=== PATIENT | male | born 1935 | race Caucasian/White ===

== ENCOUNTER 2016-11-02 15:28 | Outpatient (CLI) | payer MEDICARE, OTHER ==
--- NOTE | 2016-11-03 07:43 | RAD ---
THREE VIEWS LEFT WRIST: Indication: Left wrist pain after fall six days ago. Comparison: None. FINDINGS: There is a nondisplaced radial styloid process fracture. No additional fracture is grossly evident. IMPRESSION: Nondisplaced radial styloid process. POS: [facility]
== END 2016-11-02 15:29 | disposition home or self-care (01) ==
LOC: NAV RAD 15:28
PROVIDERS: ATTEND Internal Medicine
DX: M25.532 Pain in left wrist (principal)

== ENCOUNTER 2018-08-01 14:30 | Outpatient (CLI) | payer MEDICARE, OTHER ==
--- NOTE | 2018-08-01 16:42 | RAD ---
CHEST 2 VIEWS: Date: 08/01/18 HISTORY: Cough. Bronchitis. FINDINGS: Cardiac silhouette is unremarkable. Pulmonary vasculature engorged with mild bilateral perihilar and bibasilar infiltrates. Mediastinum is midline with aortic calcification. No confluent air space conso lidation, pneumothorax, or pleural fluid are apparent. IMPRESSION: 1. Patchy bibasilar infiltrates are favored to be related to pulmonary vascular congestion. 2. Atherosclerosis. POS: [facility]
== END 2018-08-01 14:31 | disposition home or self-care (01) ==
LOC: NAV RAD 14:30
PROVIDERS: ATTEND Family Medicine
DX: J20.9 Acute bronchitis, unspecified (principal); I70.0 Atherosclerosis of aorta
CPT/HCPCS: 71046

== ENCOUNTER 2019-09-13 18:10 | Inpatient (IN) | payer MEDICARE ==
[2019-09-13] MEDS ORDERED: hydrALAZINE 20 MG/ML VIAL SLOW IVP PRN (20:36)
[2019-09-13] MEDS ORDERED: 1/2 NS w/KCL 20 mEq 1,000 ML IV PRN (20:37)
[2019-09-13] MEDS ORDERED: Labetalol HCl 100 MG/20 ML VIAL SLOW IVP PRN (20:38)
[2019-09-13] MEDS ORDERED: ZONISAMIDE 100 MG PO SCH (21:00)
[2019-09-13] MEDS ORDERED: clonazePAM 0.5 MG TAB PO SCH (21:00)
[2019-09-13] MEDS ORDERED: Sodium Chloride 0.9% (PF) 10 ML VIAL FS PRN (21:07)
[2019-09-14 05:36] LABS: #Basophils 0.1 thou/uL (0.0-0.2); #Eosinphils 0.2 thou/uL (0.0-0.7); #Lymphocytes 1.7 thou/uL (1.20-3.40); #Monocytes 0.6 thou/uL (0.11-0.59); #Neutrophils 6.3 thou/uL (1.40-6.50); %Basophils 0.7 % (0.0-1.0); %Eosinophils 1.9 % (0.0-10.0); %Lymphocytes 19.1 % (21.0-51.0); %Monocytes 7.1 % (0.0-10.0); %Neutrophils 71.2 % (42.0-75.0); Hemoglobin 10.4 g/dL (14.0-18.0); Mean Corpuscular HGB CONC 31.7 g/dL (32.0-36.0); Mean Corpuscular Volume 91.6 fL (78.0-98.0); Mean Platelet Volume 8.3 fL (7.4-10.4); Platelet Count 242 thou/uL (130-400); RBC Distribution Width 13.2 % (11.5-14.5); Red Blood Cell (RBC) Count 3.57 mill/uL (4.70-6.10); White Blood Cell (WBC) Count 8.8 thou/uL (4.8-10.8)
[2019-09-14 05:48] LABS: ALT (SGPT) 37 U/L (8-55); AST (SGOT) 27 U/L (5-34); Albumin 3.1 g/dL (3.4-4.8); Alkaline Phosphatase 97 U/L (40-110); Anion Gap 12 mmol/L (10-20); BUN (Urea Nitrogen) 24 mg/dL (8.4-25.7); Bilirubin, Total 0.4 mg/dL (0.2-1.2); Calc. Creatinine Clearance 72 mL/min (70-130); Calcium 9.1 mg/dL (7.8-10.44); Carbon Dioxide 25 mmol/L (23-31); Chloride 107 mmol/L (98-107); Estimated GFR-MDRD 88; Globulin 2.4 g/dL (2.4-3.5); Glucose 147 mg/dL (83-110); Potassium 3.8 mmol/L (3.5-5.1); Protein, Total 5.5 g/dL (5.8-8.1); Sodium 140 mmol/L (136-145)
[2019-09-14] MEDS ORDERED: Lisinopril 10 MG TAB PO SCH (09:00)
[2019-09-14] MEDS ORDERED: Enoxaparin Sodium 40 MG/0.4 ML SYRINGE SC SCH (09:00)
[2019-09-14] MEDS ORDERED: Pantoprazole 40 MG VIAL IVP SCH (09:00)
[2019-09-14] MEDS ORDERED: FLU VACC TS2019-20(65YR UP)/PF 180 MCG/0.5 ML SYRINGE IM ONE (09:00)
[2019-09-14] MEDS ORDERED: Fluconazole 100 MG TAB PO SCH (09:00)
[2019-09-14] MEDS ORDERED: Acetaminophen 500 MG TAB PER TUBE SCH (15:00)
--- NOTE | 2019-09-14 16:31 | HP ---
HISTORY OF PRESENT ILLNESS: The patient is a very pleasant 84-year-old white male, transferred to [facility] late yesterday evening for physical therapy and occupational therapy. The patient was seen initially at [facility], evaluated and sent home with possible early bowel obstruction. His symptoms did not resolve and he was seen in the emergency room at [facility], and a CAT scan revealed changes consistent with bowel obstruction. He was admitted to the hospital, treated conservatively, but when he did not clear, he was taken to the surgical suite and had a laparoscopic lysis of adhesions. Postoperatively, he did fairly well, but ended up going to the ICU. He developed an ileus and had a poor appetite. Eventually, he had a PEG tube placed and had tube feedings continuous via that. Dr. Tao called me yesterday and said the patient was doing very well and wished him to be transferred to [facility] for physical therapy and occupational therapy. He states he was tolerating his tube feedings very well and needed some therapy. He also stated that Speech had cleared him for honey thickened liquids. PAST MEDICAL HISTORY: Significant for: 1. Hypertension. 2. Hyperlipidemia. 3. Degenerative joint disease. 4. GERD. 5. Erectile dysfunction. 6. Gout. 7. Polycythemia. 8. Depression. 9. Generalized weakness. PAST SURGICAL HISTORY: 1. PE tube. 2. C-spine fusion. 3. Right rotator cuff. 4. Left knee arthroscopy. 5. Right inguinal hernia repair. 6. Robotic right colectomy many years ago. 7. Multiple colonoscopies. 8. Recent robotic lysis of adhesions. MEDICATIONS: Present medications that he was transferred here on include the following, which include: 1. DuoNebs q.i.d. p.r.n. 2. Clonazepam 0.5 mg at bedtime. 3. Lovenox 40 mg subcu daily. 4. Diflucan 100 mg daily. 5. Hydralazine 10 mg slow IV q.4 hours p.r.n. blood pressure greater than 170. 6. Labetalol 20 mg slow IV q.4 hours p.r.n. blood pressure greater than 170. 7. Zestril 10 mg daily. 8. Zonisamide 100 mg b.i.d. 9. Protonix 40 mg IV daily. 10. Potassium chloride with half-normal saline p.r.n. 20 mEq and a 1000 mL p.r.n. potassium less than 3.5. 11. Zoloft 100 mg daily. 12. Normal saline flush. ALLERGIES: REVEALS THE PATIENT IS ALLERGIC TO ASPIRIN AND IBUPROFEN. FAMILY HISTORY: Noncontributory. SOCIAL HISTORY: Reveals the patient lives in [place], [place], with his in a one-story home. He states he remembers me from a long time ago, probably 30 plus years ago. REVIEW OF SYSTEMS: Noncontributory because the patient still is somewhat confused and very sleepy this morning. PHYSICAL EXAMINATION: VITAL SIGNS: Reveal blood pressure 149/65, pulse 70 to 71, respirations 18 to 20, O2 saturation 96% on room air, and T-max 97.1. GENERAL: This is a well-developed, well-nourished, thin white male, in no apparent distress at this time. HEENT: Reveals normocephalic and nontraumatic cranium. Pupils equally round and reactive. Extraocular movements are intact. Nose and throat are slightly dry, but clear. NECK: Supple without masses, nodes, or bruits. CHEST: Clear to auscultation. No rales, no rhonchi, no wheezes are heard. HEART: Reveals a regular rate and rhythm without murmurs, gallops, or rubs. ABDOMEN: Soft, nontender, with multiple robotic incision sites, but none are red or draining. No rebound or guarding is noted. Normal bowel sounds are noted in all 4 quadrants. PEG tube noted in the upper left quadrant. Right inguinal hernia scar is noted in the right groin. : Deferred. EXTREMITIES: Reveal no clubbing, cyanosis, or edema. LABORATORY DATA: This morning, reveal white count is 8800, hemoglobin 10.4, hematocrit 32.7, and platelet count 242,000. Chemistry reveals sodium 140, potassium 3.8, chloride 107, carbon dioxide 25 with a BUN 24, creatinine 0.83, sugar is 147 this morning. The patient's total protein is 5.5, albumin 3.1. His pre-albumin is pending. ASSESSMENT: 1. Generalized weakness. 2. Recent bowel obstruction with PEG tube placement. As he is progressing along his tube feedings and along his feedings, we will eventually discontinue that. 3. Hypertension. 4. Hyperlipidemia. 5. History of polyps. 6. Generalized weakness. 7. Recent small bowel obstruction with robotic lysis of adhesions. 8. Degenerative joint disease. 9. Recent altered mental status, which is improving. PLAN: 1. The patient will start with physical therapy and occupational therapy. 2. The patient will see speech therapy today. 3. We will continue his present medications. 4. We will continue his present tube feedings. 5. If the patient progresses, we will adjust his medications according to his blood pressure and his nutritional status. 6. Hopefully, the patient will eventually be able to be weaned off his PEG tube feedings on to normal feedings. 7. Continue to monitor the patient's labs once or twice a week. Job ID: [id number]
[2019-09-14] MEDS: clonazePAM 0.5 MG TAB PO SCH (20:35)
[2019-09-14] MEDS: ZONISAMIDE 100 MG PO SCH (20:36)
[2019-09-15] MEDS: ZONISAMIDE 100 MG PO SCH ×2 (09:00→20:27)
[2019-09-15] MEDS ORDERED: Pantoprazole 40 MG VIAL IVP SCH (09:00)
[2019-09-15] MEDS: Enoxaparin Sodium 40 MG/0.4 ML SYRINGE SC SCH (09:22)
[2019-09-15] MEDS: Fluconazole 100 MG TAB PO SCH (09:28)
[2019-09-15] MEDS: Lisinopril 10 MG TAB PO SCH (09:29)
[2019-09-15] MEDS: Acetaminophen 500 MG TAB PER TUBE PRN (09:56)
--- NOTE | 2019-09-15 14:27 | PRG ---
DATE OF SERVICE: 09/15/2019 SUBJECTIVE: Mr. Burroughs is a pleasant 84-year-old white male, transferred to [facility] for physical therapy and occupational therapy. He was initially admitted to [facility] and then sent home with early bowel obstruction. Symptoms did not resolve and he returned to the emergency room at [facility], where CAT scan revealed significant changes consistent with bowel obstruction. Admitted to the hospital and treat conservatively, but he did not improve. He was taken to the surgical suite, where Dr. Daniel Tao did a laparoscopic lysis of adhesions. Postoperatively, he has actually done fairly well except for occasional significant outbursts. He is stable, beginning to eat. He was transferred to inpatient rehab at [facility] for physical therapy and occupational therapy. Subjectively, the patient seems to be doing fairly well. He was cleared by Speech Therapy for pureed type foods. We will continue his PEG feedings and his water flushes as indicated. Unfortunately, he has significant problem with depression and most likely, his bipolar because, he will be very calm and then in the split of an instant, he will be very aggressive. We will continue his fluoxetine, but we will start him on Risperdal 0.25 mg b.i.d. Vital signs today reveal blood pressure 156/67, pulse 76 to 78, respirations 20, O2 saturation 97% on room air, T-max 97.7. Laboratory yesterday revealed white count 8000, hemoglobin 10.4, hematocrit 32.7, platelet count 242,000. Chemistries yesterday reveal sodium of 140, potassium 3.8, chloride 107, carbon dioxide 25 with creatinine 0.83. Glucose was 147. BNP was 82. Pre-albumin was 20. PHYSICAL EXAMINATION: GENERAL: This is a well-developed, well-nourished, thin white male, but does not eat much. HEENT: Normocephalic and nontraumatic cranium. Pupils are equally round and reactive. Extraocular movements intact. Nose and throat are somewhat dry, but clear. NECK: Supple without masses, nodes, or bruits. CHEST: Clear to auscultation. No rales, rhonchi, or wheezes are heard. HEART: Reveals a regular rate and rhythm without murmurs, gallops, or rubs. ABDOMEN: Soft, nontender without organomegaly. No rebound or guarding is noted. PEG tube is noted in the left upper quadrant. Right inguinal hernia scar is noted. Robotic surgical incisions are noted from his adhesiolysis. : Deferred. EXTREMITIES: Reveal no clubbing, cyanosis, or edema. LABORATORY DATA: No labs were done today. ASSESSMENT: 1. Generalized weakness. 2. Recent bowel obstruction with PEG tube placement and the patient is progressing towards pureed foods and liquids. 3. Hypertension. 4. Hyperlipidemia. 5. History of generalized weakness with recent small bowel obstruction with robotic lysis of adhesions. 6. Degenerative joint disease. 7. Altered mental status. 8. Depression. 9. Polycythemia. 10. Gout. 11. Erectile dysfunction. 12. Gastroesophageal reflux disease. 13. Depression/bipolar. PLAN: 1. We will start the patient on Risperdal 0.25 mg in the hopes that it will help him increase his appetite and keep him from becoming as manic with his bipolar disease. 2. Continue tube feedings along with oral feedings of pureed and honey thickened liquids. 3. Continue speech therapy. 4. Continue present medications. 5. Continue physical therapy and occupational therapy. 6. Continue to monitor the patient's blood pressure closely. 7. Dr. Adrian Sams is on-call this weekend. Job ID: [id number]
[2019-09-15] MEDS: risperiDONE 0.25 MG TAB PO SCH (20:26)
[2019-09-15] MEDS: Lorazepam 0.5 MG TAB PER TUBE PRN (20:26)
[2019-09-15] MEDS: clonazePAM 0.5 MG TAB PO SCH (20:26)
[2019-09-16 00:42] LABS: Bilirubin Negative (Negative); Blood, Urine Trace (Negative); Clarity Clear (Clear); Glucose, Urine (Dipstick) Negative (Negative); Leukocyte Negative (Negative); Nitrite Negative (Negative); Protein, Urine (Dipstick) Negative (Neg-Trace); Urobilinogen 0.2 mg/dL (Less than 2)
[2019-09-16 00:45] LABS: Bacteria/HPF None Seen HPF (None Seen); Squamous Epithelial 0-3 HPF (0-3); WBC/HPF None Seen HPF (0-3)
[2019-09-16] MEDS: Lorazepam 0.5 MG TAB PER TUBE PRN ×3 (08:43→20:58)
[2019-09-16] MEDS: Enoxaparin Sodium 40 MG/0.4 ML SYRINGE SC SCH (08:43)
[2019-09-16] MEDS: Lisinopril 10 MG TAB PO SCH (08:44)
[2019-09-16] MEDS: risperiDONE 0.25 MG TAB PO SCH ×2 (08:45→20:58)
[2019-09-16] MEDS: Fluconazole 100 MG TAB PO SCH (08:45)
[2019-09-16] MEDS: ZONISAMIDE 100 MG PO SCH ×2 (08:47→20:58)
[2019-09-16] MEDS: Milk Of Magnesia 30 ML UDCUP PER TUBE PRN (20:58)
[2019-09-16] MEDS: Acetaminophen 500 MG TAB PER TUBE PRN (20:58)
[2019-09-16] MEDS: clonazePAM 0.5 MG TAB PO SCH (20:58)
--- NOTE | 2019-09-17 08:05 | PRG ---
DATE OF SERVICE: 09/16/2019 SUBJECTIVE: The patient is awake and alert, lying in his bed, but is requiring sitter because of confusion and occasional agitation at this time. However, he is in no distress. Denies any complaints of abdominal pain, nausea, vomiting, or shortness of breath. OBJECTIVE: VITAL SIGNS: Blood pressure is 127/87, temperature is 98, pulse is 84, respirations are 20, O2 saturation is 98% on room air. LUNGS: Clear. CARDIAC: Shows regular rhythm. ABDOMEN: Soft, nontender. PEG tube is in the left upper quadrant. SKIN AND EXTREMITIES: Show no edema, clubbing, or cyanosis. ASSESSMENT: 1. Recent bowel obstruction with percutaneous endoscopic gastrostomy tube placement, but progressing on diet with pureed foods, liquids. 2. General weakness, improving. 3. Bipolar disorder with depression, treated with Risperdal. No further agitation, but with persistent confusion. 4. Hypertension, controlled to goal. PLAN: 1. Continue Risperdal and monitor for increased lethargy. 2. Continue pureed diet, honey thickened liquids. 3. Continue speech therapy, physical therapy, occupational therapy. 4. Continue to monitor vital signs closely. Job ID: [id number]
[2019-09-17] MEDS: Lisinopril 10 MG TAB PO SCH (08:57)
[2019-09-17] MEDS: risperiDONE 0.25 MG TAB PO SCH ×2 (08:57→20:52)
[2019-09-17] MEDS: Lorazepam 0.5 MG TAB PER TUBE PRN ×3 (08:57→20:53)
[2019-09-17] MEDS: Fluconazole 100 MG TAB PO SCH (08:57)
[2019-09-17] MEDS: ZONISAMIDE 100 MG PO SCH ×2 (08:58→20:53)
[2019-09-17] MEDS: Enoxaparin Sodium 40 MG/0.4 ML SYRINGE SC SCH (09:00)
[2019-09-17] MEDS: Acetaminophen 500 MG TAB PER TUBE PRN ×2 (09:15→20:52)
[2019-09-17] MEDS: clonazePAM 0.5 MG TAB PO SCH (20:52)
[2019-09-18] MEDS: Enoxaparin Sodium 40 MG/0.4 ML SYRINGE SC SCH (10:06)
[2019-09-18] MEDS: Lisinopril 10 MG TAB PO SCH (10:07)
[2019-09-18] MEDS: Fluconazole 100 MG TAB PO SCH (10:08)
[2019-09-18] MEDS: risperiDONE 0.25 MG TAB PO SCH (10:08)
[2019-09-18] MEDS: ZONISAMIDE 100 MG PO SCH ×2 (10:09→20:21)
[2019-09-18] MEDS: Acetaminophen 500 MG TAB PER TUBE PRN ×2 (10:12→16:51)
[2019-09-18] MEDS: Lorazepam 0.5 MG TAB PER TUBE PRN ×3 (10:16→23:57)
--- NOTE | 2019-09-18 19:58 | PRG ---
DATE OF SERVICE: 09/18/2019 SUBJECTIVE: Mr. Burroughs is a well-developed, well-nourished 84-year-old white male, who was found to have small bowel obstruction, was taken to the surgical suite by Dr. Daniel Tao. He did lysis laparoscopically of his adhesions. Postoperatively, he did fairly well except for mental status changes. He started eating. The patient was transferred to inpatient rehab at [facility] for physical therapy and occupational therapy. Over the weekend, the patient was very belligerent and striking out towards his and the nurses. This morning, he is very calm, but can be very aggressive. We will continue fluoxetine, started him on Risperdal 0.5 b.i.d. Vital signs today reveal blood pressure this morning 164/77, pulse 92, respirations 20, O2 saturation 98% on room air, T-max 98. LABORATORY DATA: No labs were done today. Urinalysis was done on the , which was unremarkable. PHYSICAL EXAMINATION: GENERAL: This is a well-developed, well-nourished, thin elderly white male, who is very calm when I talked to him, but at other times very confused. HEENT: Normocephalic and nontraumatic cranium. Pupils are equal, round, and reactive. Extraocular movements are intact. Nose and throat are slightly dry, but clear. NECK: Supple without masses, nodes, or bruits. CHEST: Clear to auscultation. No rales, rhonchi, wheezes, or cough are noted. HEART: Reveals a regular rate and rhythm without murmurs, gallops, or rubs. ABDOMEN: Soft, nontender without organomegaly. PEG tube in left upper quadrant is flowing well. The patient eats very little, although he is on a pureed diet. GENITOURINARY: Exam is deferred. EXTREMITIES: Reveal no clubbing, cyanosis, or edema. ASSESSMENT: 1. Recent bowel obstruction with percutaneous endoscopic gastrostomy tube, progressed with diet, pureed foods, and honey-thickened liquids. 2. Bipolar disorder with depression. 3. Presently on Risperdal and fluoxetine. 4. Hypertension, fairly well controlled. 5. Generalized weakness. PLAN: 1. Continue Risperdal and monitor. 2. Continue offering the patient pureed diet and honey-thick liquids. 3. Continue speech therapy, physical therapy, occupational therapy. 4. Continue to monitor the patient's blood pressure closely. Job ID: [id number]
[2019-09-18] MEDS: risperiDONE 0.5 MG TAB PO SCH (20:19)
[2019-09-18] MEDS: clonazePAM 0.5 MG TAB PO SCH (20:19)
--- NOTE | 2019-09-19 09:58 | PRG ---
DATE OF SERVICE: SUBJECTIVE: Mr. Burroughs is an 84-year-old white male, who had a small bowel obstruction, was taken to surgical suite by Dr. Daniel Tao. He had a laparoscopic lysis of his adhesions. Postoperatively, he did well except for mental status changes. He is eating and is tolerating his food fairly well, but does not eat very much. He still has tube feedings because of his poor appetite. The patient has become very belligerent and agitated, maybe because he cannot hear anything because the family has not brought his hearing aids. When you get in his face and instruct him loudly, he can do what he is supposed to do and he is not as belligerent. He has never been mad or agitated with me. We did start him on Risperdal 0.5 b.i.d. OBJECTIVE: VITAL SIGNS: Today reveal blood pressure this morning of 146/70, pulse 86 to 95, respirations 20, O2 saturation 98% to 99% on room air, T-max 98 degrees. GENERAL: This is a well-developed, well-nourished, thin white male, in no apparent distress at this time. He is extremely hard of hearing. HEENT: Normocephalic and nontraumatic cranium. Pupils are equally round and reactive. Extraocular movements are intact. Nose and throat are dry, but clear. NECK: Supple without masses, nodes, or bruits. CHEST: Clear to auscultation. No rales, rhonchi, wheezes, or cough. HEART: Reveals a regular rate and rhythm without murmurs, gallops, or rubs. ABDOMEN: Soft, nontender without organomegaly. PEG tube is in the left upper quadrant, it is still clear, flowing well. The patient eats a very little, although he is eating a little bit better every day on a pureed diet. GENITOURINARY: Exam is deferred. EXTREMITIES: Reveal no clubbing, cyanosis, or edema. ASSESSMENT: 1. Recent bowel obstruction with percutaneous endoscopic gastrostomy tube placed. Progression with diet on pureed foods and honey thickened liquids. 2. Bipolar disorder. 3. Extremely hard of hearing and the patient does not have any hearing aids. 4. Risperdal and fluoxetine to be continued. 5. Hypertension, fairly well controlled. 6. Generalized weakness. 7. Agitation, most likely because he cannot hear. PLAN: 1. Continue Risperdal and fluoxetine and monitor the patient for agitation. 2. Encourage the patient to eat pureed diet and honey thickened liquids. 3. Continue PEG tube feedings until the patient is appropriately eating better. 4. Continue to monitor the patient's blood pressure closely. 5. Physical therapy and occupational therapy. 6. Speech therapy. 7. Stress ulcer prophylaxis. 8. Decubitus precautions. 9. Ask the family to bring in his hearing aids. Job ID: [id number]
[2019-09-19] MEDS: Lisinopril 10 MG TAB PO SCH (10:10)
[2019-09-19] MEDS: Fluconazole 100 MG TAB PO SCH (10:10)
[2019-09-19] MEDS: risperiDONE 0.5 MG TAB PO SCH ×2 (10:10→21:38)
[2019-09-19] MEDS: Enoxaparin Sodium 40 MG/0.4 ML SYRINGE SC SCH (10:10)
[2019-09-19] MEDS: ZONISAMIDE 100 MG PO SCH ×2 (10:11→21:38)
[2019-09-19] MEDS: Lorazepam 0.5 MG TAB PER TUBE PRN (15:13)
[2019-09-19] MEDS: Acetaminophen 500 MG TAB PER TUBE PRN (15:13)
--- NOTE | 2019-09-19 17:22 | PRG ---
DATE OF SERVICE: 09/17/[address] Gerber Lee. SUBJECTIVE: The patient lying in bed, awake, but minimally responsive, confused, but in no distress. OBJECTIVE: VITAL SIGNS: Show blood pressure is 138/67, temperature 97, pulse 100, respirations 20, and O2 sats 96% on room air. LUNGS: Clear. CARDIAC: Showed regular rhythm. ABDOMEN: Soft and nontender. SKIN/EXTREMITIES: Show no edema, clubbing, or cyanosis. ASSESSMENT: 1. Bipolar disorder with depression, on Risperdal, persistent confusion, but no further agitation and mild sedation. 2. Severe weakness, minimal improvement. 3. Hypertension, controlled to goal. 4. Recent bowel obstruction. Tolerating fluids and liquids. PLAN: 1. Continue Risperdal. Monitor lethargy. 2. Continue pureed diet, honey-thickened liquids. 3. Continue speech therapy, physical therapy, and occupational therapy. 4. Monitor vital signs closely. Job ID: [id number]
[2019-09-19] MEDS: clonazePAM 0.5 MG TAB PO SCH (21:38)
[2019-09-20 05:44] LABS: #Eosinphils 0.2 thou/uL (0.0-0.7); #Lymphocytes 1.5 thou/uL (1.20-3.40); #Monocytes 0.5 thou/uL (0.11-0.59); #Neutrophils 6.1 thou/uL (1.40-6.50); %Basophils 0.5 % (0.0-1.0); %Eosinophils 2.7 % (0.0-10.0); %Lymphocytes 17.4 % (21.0-51.0); %Monocytes 5.9 % (0.0-10.0); %Neutrophils 73.5 % (42.0-75.0); Hemoglobin 11.3 g/dL (14.0-18.0); Mean Corpuscular Hemoglobin 28.8 pg (27.0-31.0); Mean Platelet Volume 9.3 fL (7.4-10.4); Platelet Count 211 thou/uL (130-400); RBC Distribution Width 12.9 % (11.5-14.5); Red Blood Cell (RBC) Count 3.93 mill/uL (4.70-6.10); White Blood Cell (WBC) Count 8.4 thou/uL (4.8-10.8)
[2019-09-20 06:02] LABS: ALT (SGPT) 42 U/L (8-55); AST (SGOT) 30 U/L (5-34); Albumin 3.6 g/dL (3.4-4.8); Alkaline Phosphatase 117 U/L (40-110); Anion Gap 13 mmol/L (10-20); BUN (Urea Nitrogen) 23 mg/dL (8.4-25.7); Bilirubin, Total 0.3 mg/dL (0.2-1.2); Calc. Creatinine Clearance 59 mL/min (70-130); Calcium 9.4 mg/dL (7.8-10.44); Carbon Dioxide 28 mmol/L (23-31); Chloride 102 mmol/L (98-107); Estimated GFR-MDRD 76; Globulin 2.4 g/dL (2.4-3.5); Glucose 135 mg/dL (83-110); Potassium 3.7 mmol/L (3.5-5.1); Sodium 139 mmol/L (136-145)
[2019-09-20] MEDS: Fluconazole 100 MG TAB PO SCH (09:58)
[2019-09-20] MEDS: Lorazepam 0.5 MG TAB PER TUBE PRN ×2 (09:58→16:31)
[2019-09-20] MEDS: Lisinopril 10 MG TAB PO SCH (09:59)
[2019-09-20] MEDS: Enoxaparin Sodium 40 MG/0.4 ML SYRINGE SC SCH (09:59)
[2019-09-20] MEDS: ZONISAMIDE 100 MG PO SCH ×2 (10:00→21:06)
[2019-09-20] MEDS: risperiDONE 0.5 MG TAB PO SCH ×2 (10:02→21:04)
--- NOTE | 2019-09-20 17:14 | PRG ---
DATE OF SERVICE: 09/20/2019 SUBJECTIVE: Mr. Burroughs is an 84-year-old white male, who presented to the emergency room with obstruction at [facility]. He was evaluated and sent home hoping that it would get better. It did not get better, so he presented to the ER at [facility] and was admitted to the hospital. After a trial of IV fluids and rest, he did not improve and he was taken to surgical suite for laparoscopic lysis of his adhesions by Dr. Daniel Tao. Postoperatively, he did well, but he had mental status changes. He was admitted to the ICU for a while and then stepped down the unit and eventually transferred here. He has a PEG tube and is tolerating some food, but not eating well. He has been real agitated and aggressive and we figured out that he is not hearing very well, so his family was requested to bring his hearing aids in. They did get them fixed today and brought them in, and hopefully, that will make his aggressiveness less apparent. The patient had a little therapy this morning, but did not have his hearing aids in until late this evening. OBJECTIVE: VITAL SIGNS: Reveal blood pressure 146/70, pulse 79 to 107, respirations 18, O2 saturation 97% on room air, and T-max 97.9. GENERAL: This is a well-developed, well-nourished, sleepy white male this afternoon, no apparent distress at this time. HEENT: Reveals normocephalic and nontraumatic cranium. Pupils are equal, round, and reactive. Extraocular movements are intact. Nose and throat are slightly dry, but clear. NECK: Supple without masses, nodes, or bruits. CHEST: Clear to auscultation. No rales, rhonchi, or wheezes are heard. HEART: Reveals a regular rate and rhythm without murmurs, gallops, or rubs. ABDOMEN: Soft and nontender without organomegaly. PEG tube is noted in left upper quadrant. GENITOURINARY: Deferred. EXTREMITIES: Reveal no clubbing, cyanosis, or edema. ASSESSMENT: 1. Status post bowel obstruction, tolerating fluids, but also still requires PEG tube. 2. Hypertension. 3. Generalized weakness. 4. Extremely hard of hearing. 5. Bipolar disease. 6. Generalized weakness. PLAN: 1. Continue present medication. 2. Encourage the patient to use his hearing aids at all times. 3. Encourage the patient to eat pureed diet along with honey thickened liquids. 4. Continue PEG tube feedings at this time. 5. Monitor the patient's blood pressure closely and adjust medications as needed. 6. Speech therapy. 7. Stress ulcer prophylaxis. 8. Decubitus precautions. 9. Physical therapy and occupational therapy. Job ID: [id number]
[2019-09-20] MEDS: clonazePAM 0.5 MG TAB PO SCH (21:04)
[2019-09-21] MEDS: Enoxaparin Sodium 40 MG/0.4 ML SYRINGE SC SCH (08:03)
[2019-09-21] MEDS: risperiDONE 0.5 MG TAB PO SCH ×2 (08:04→21:13)
[2019-09-21] MEDS: Fluconazole 100 MG TAB PO SCH (08:04)
[2019-09-21] MEDS: Lorazepam 0.5 MG TAB PER TUBE PRN ×2 (08:04→16:22)
[2019-09-21] MEDS: Lisinopril 10 MG TAB PO SCH (08:08)
[2019-09-21] MEDS: ZONISAMIDE 100 MG PO SCH ×2 (08:09→21:52)
[2019-09-21] MEDS: Milk Of Magnesia 30 ML UDCUP PER TUBE PRN (16:22)
--- NOTE | 2019-09-21 18:56 | PRG ---
DATE OF SERVICE: 09/21/2019 SUBJECTIVE: Mr. Burroughs is a very thin 84-year-old white male, who presented to the emergency room in [facility] with bowel obstruction. He was evaluated and sent home and then returned to the ER at [facility], where he was admitted. He eventually was taken to surgical suite for laparoscopic lysis of adhesions by Dr. Daniel Tao. Postoperatively, he did well, but he had some mental status changes. He was admitted to the intensive care unit, stepped down the unit, and eventually transferred to [facility]. He has a PEG tube, but is tolerating some food, but not eating very well. He is very hard of hearing, and we finally got his family to bring in his hearing aids. He seems to be a little bit better when he wears them, but he still does not hear very well. OBJECTIVE: VITAL SIGNS: Today reveal blood pressure 150/67, pulse 101, respirations 18, O2 saturation 97% on room air, and T-max 97.1. GENERAL: This is a well-developed, well-nourished, very pleasant 84-year-old white male, in no apparent distress. HEENT: Reveals normocephalic and nontraumatic cranium. Pupils are equal, round, and reactive. Extraocular movements are intact. Nose and throat are still dry. The patient still eats poorly, but sometimes eats better. NECK: Supple without masses, nodes, or bruits. CHEST: Clear to auscultation. No rales, rhonchi, wheezes are heard. Breath sounds are distant. HEART: Reveals a regular rate and rhythm without murmurs, gallops, or rubs. ABDOMEN: Soft, nontender without organomegaly. PEG tube still noted in the upper mid epigastric area. GENITOURINARY: Deferred. EXTREMITIES: Reveal no clubbing, cyanosis, or edema. ASSESSMENT: 1. Status post bowel obstruction, tolerating fluids, but still requires PEG tube feedings for adequate nutrition. 2. Hypertension. 3. Generalized weakness. 4. The patient is extremely hard of hearing and needs his hearing aids. 5. Bipolar disease. 6. Generalized weakness. PLAN: 1. Continue to have the nurses put his hearing aids in and use them any time he is awake. 2. Encourage the patient to continue to eat pureed diet along with honey thickened liquids. 3. Continue PEG tube feedings until the nutritional status is normal. 4. Continue present medications. 5. Monitor the patient's blood pressure closely. Adjust medications as needed. 6. Speech therapy. 7. Physical therapy and occupational therapy. 8. Decubitus precautions. Job ID: [id number]
[2019-09-21] MEDS: Melatonin 3 MG TAB PO SCH (21:13)
[2019-09-21] MEDS: traZODone HCl 50 MG TAB PO SCH (21:13)
[2019-09-21] MEDS: clonazePAM 0.5 MG TAB PO SCH (21:14)
[2019-09-22] MEDS: Acetaminophen 500 MG TAB PER TUBE PRN (06:33)
[2019-09-22] MEDS: Enoxaparin Sodium 40 MG/0.4 ML SYRINGE SC SCH (09:14)
[2019-09-22] MEDS: Lisinopril 10 MG TAB PO SCH (09:15)
[2019-09-22] MEDS: Fluconazole 100 MG TAB PO SCH (09:15)
[2019-09-22] MEDS: risperiDONE 0.5 MG TAB PO SCH ×2 (11:37→20:58)
[2019-09-22] MEDS: ZONISAMIDE 100 MG PO SCH ×2 (11:37→21:00)
--- NOTE | 2019-09-22 14:32 | PRG ---
DATE OF SERVICE: 09/22/2019 SUBJECTIVE: Mr. Burroughs is an 84-year-old white male, who presented to the ER at [facility] with bowel obstruction. He eventually winded up to [facility] for laparoscopic lysis of adhesions by Dr. Daniel Tao. Postoperatively, he did well but had mental status problems and was transferred to [facility] after he received a PEG tube because he would not eat. He is very hard of hearing and his states that he is just not himself. She thinks he messed to have something wrong and so we will repeat labs tomorrow along with a chest x-ray and a urinalysis. OBJECTIVE: VITAL SIGNS: Today reveal blood pressure 104/55, pulse 100, respirations 18, O2 saturation 95% on room air. T-max 97.5. GENERAL: This is a well-developed, well-nourished, elderly, thin, white male, in no apparent distress. He is less responsive today because he just finished walking with therapy. He states he is tired, but he does have his hearing aids in. HEENT: Normocephalic and nontraumatic cranium. Pupils are equally round and reactive. Extraocular movements are intact. Nose and throat are dry. The patient continues to eat poorly, but has supplemental feedings through his PEG tube. NECK: Supple without masses, nodes, or bruits. CHEST: Clear, but shallow breath sounds are noted. No rales, rhonchi, or wheezes are heard. HEART: Reveals a regular rate and rhythm, but heart sounds are distant. ABDOMEN: Soft, nontender without organomegaly. PEG tube is functioning well, not inflamed or infected. : Deferred. EXTREMITIES: Reveal no clubbing, cyanosis, or edema. ASSESSMENT: 1. Continued altered mental status at times. 2. Status post bowel obstruction, post lysis of adhesions, tolerating some fluids, but still requires PEG tube for adequate nutrition. 3. Hypertension. 4. Extremely hard of hearing. 5. Bipolar disease. 6. Generalized weakness. PLAN: 1. Continue to encourage the family and nurse to put his hearing aids. 2. Encourage the patient to eat. Diet with honey thickened liquids. 3. Continue PEG tube feedings. 4. Continue present medications. 5. Monitor the patient's blood pressure closely, adjust medications if needed. 6. Speech therapy. 7. Decubitus precautions. 8. Physical therapy and occupational therapy. Job ID: [id number]
--- NOTE | 2019-09-22 17:07 | RAD ---
Chest AP view INDICATION: Cough COMPARISON: September 06, 2019 FINDINGS: Lungs:The lungs are clear. Stable calcified granuloma in the right lower lobe and left upper lobe. Cardiac silhouette:Stable mild cardiomegaly. Pulmonary vasculature:Normal Pleural spaces:No pleural effusion or pneumothorax is demonstrated. Upper abdomen:No abnormality seen. Osseous structures: No acute osseous abnormality. Additional findings:None. IMPRESSION: No acute cardiopulmonary abnormality.
[2019-09-22] MEDS: Lorazepam 0.5 MG TAB PER TUBE PRN (18:06)
[2019-09-22 20:22] LABS: Bilirubin Negative (Negative); Blood, Urine Negative (Negative); Clarity Clear (Clear); Glucose, Urine (Dipstick) Negative (Negative); Leukocyte Trace (Negative); Nitrite Positive (Negative); Protein, Urine (Dipstick) Negative (Neg-Trace); Urobilinogen 0.2 mg/dL (Less than 2)
[2019-09-22 20:31] LABS: Bacteria/HPF 1+ HPF (None Seen); RBC/HPF 0-3 HPF (0-3); Squamous Epithelial 0-3 HPF (0-3); WBC/HPF 0-3 HPF (0-3)
[2019-09-22] MEDS: Melatonin 3 MG TAB PO SCH (20:58)
[2019-09-22] MEDS: clonazePAM 0.5 MG TAB PO SCH (20:58)
[2019-09-22] MEDS: traZODone HCl 50 MG TAB PO SCH (20:59)
[2019-09-23 05:41] LABS: #Basophils 0.1 thou/uL (0.0-0.2); #Eosinphils 0.2 thou/uL (0.0-0.7); #Lymphocytes 1.8 thou/uL (1.20-3.40); #Monocytes 0.6 thou/uL (0.11-0.59); #Neutrophils 5.1 thou/uL (1.40-6.50); %Basophils 0.7 % (0.0-1.0); %Eosinophils 2.7 % (0.0-10.0); %Lymphocytes 23.4 % (21.0-51.0); %Monocytes 7.8 % (0.0-10.0); %Neutrophils 65.5 % (42.0-75.0); Hemoglobin 10.1 g/dL (14.0-18.0); Mean Corpuscular HGB CONC 31.3 g/dL (32.0-36.0); Mean Corpuscular Hemoglobin 28.6 pg (27.0-31.0); Mean Corpuscular Volume 91.4 fL (78.0-98.0); Mean Platelet Volume 10.2 fL (7.4-10.4); Platelet Count 182 thou/uL (130-400); RBC Distribution Width 13.3 % (11.5-14.5); Red Blood Cell (RBC) Count 3.54 mill/uL (4.70-6.10); White Blood Cell (WBC) Count 7.8 thou/uL (4.8-10.8)
[2019-09-23 06:04] LABS: ALT (SGPT) 44 U/L (8-55); AST (SGOT) 29 U/L (5-34); Albumin 3.3 g/dL (3.4-4.8); Alkaline Phosphatase 104 U/L (40-110); Anion Gap 12 mmol/L (10-20); BUN (Urea Nitrogen) 33 mg/dL (8.4-25.7); Bilirubin, Total 0.3 mg/dL (0.2-1.2); Calc. Creatinine Clearance 49 mL/min (70-130); Calcium 9.2 mg/dL (7.8-10.44); Carbon Dioxide 29 mmol/L (23-31); Chloride 104 mmol/L (98-107); Estimated GFR-MDRD 61; Globulin 2.3 g/dL (2.4-3.5); Glucose 127 mg/dL (83-110); Protein, Total 5.6 g/dL (5.8-8.1); Sodium 141 mmol/L (136-145)
[2019-09-23] MEDS: Lisinopril 10 MG TAB PO SCH (08:34)
[2019-09-23] MEDS: Enoxaparin Sodium 40 MG/0.4 ML SYRINGE SC SCH (08:34)
[2019-09-23] MEDS: Fluconazole 100 MG TAB PO SCH (08:34)
[2019-09-23] MEDS: risperiDONE 0.5 MG TAB PO SCH ×2 (08:35→20:33)
[2019-09-23] MEDS: ZONISAMIDE 100 MG PO SCH ×2 (08:48→21:30)
[2019-09-23] MEDS: Lorazepam 0.5 MG TAB PER TUBE PRN ×2 (10:08→17:27)
--- NOTE | 2019-09-23 16:45 | PRG ---
DATE OF SERVICE: 09/23/2019 SUBJECTIVE: Mr. Amanda Burroughs is sleeping, but arousable. He is not able to recognize me, even though I had taken care of him for a long time until about 2 years ago. No family at bedside. He does have a sitter. OBJECTIVE: VITAL SIGNS: He is afebrile, heart rate 93, respirations 18, oxygen saturation 96%, and blood pressure 153/70. CARDIOVASCULAR SYSTEM: S1 and S2 plus. RESPIRATORY SYSTEM: Normal vesicular breath sounds. ABDOMEN: Soft, nontender. Bowel sounds heard in all quadrants. PEG tube site is healthy. EXTREMITIES: Without cyanosis or clubbing. CENTRAL NERVOUS SYSTEM: Limited exam. Does move all 4 extremities, but very confused. Sitter states that he apparently ate all of breakfast, but barely any lunch. IMAGING STUDIES: His chest x-ray done yesterday, does not show any acute cardiopulmonary changes. LABORATORY DATA: Labs from this morning show a white count of 7.8. H and H are 10.1 and 32.3, which are baseline for him. Sodium 141, potassium 4.0, BUN and creatinine are 33 and 1.14. IMPRESSION: 1. Bowel obstruction, status post lysis of adhesions with altered mental status postoperatively with no evidence for infectious or metabolic etiology. 2. Hypertension. 3. Dyslipidemia. 4. Degenerative joint disease. 5. Gastroesophageal reflux disease. 6. Gout. PLAN: 1. Continue current medications. 2. Nutritional support. 3. DVT prophylaxis. 4. Decubitus precautions. 5. Stress ulcer prophylaxis. 6. PEG tube care. 7. Aspiration precautions. 8. Routine laboratory values. Job ID: [id number]
[2019-09-23] MEDS: traZODone HCl 50 MG TAB PO SCH (20:33)
[2019-09-23] MEDS: Melatonin 3 MG TAB PO SCH (20:33)
[2019-09-23] MEDS: clonazePAM 0.5 MG TAB PO SCH (20:33)
[2019-09-24] MEDS: Enoxaparin Sodium 40 MG/0.4 ML SYRINGE SC SCH (08:48)
[2019-09-24] MEDS: Lisinopril 10 MG TAB PO SCH (08:49)
[2019-09-24] MEDS: Fluconazole 100 MG TAB PO SCH (08:49)
[2019-09-24] MEDS: ZONISAMIDE 100 MG PO SCH ×2 (08:52→21:01)
[2019-09-24] MEDS: risperiDONE 0.5 MG TAB PO SCH ×2 (08:52→20:59)
[2019-09-24] MEDS: Acetaminophen 500 MG TAB PER TUBE PRN (09:49)
[2019-09-24] MEDS: Lorazepam 0.5 MG TAB PER TUBE PRN (09:50)
[2019-09-24] MEDS ORDERED: risperiDONE 0.5 MG TAB PER TUBE SCH (13:00)
[2019-09-24] MEDS ORDERED: Lorazepam 0.5 MG TAB PER TUBE SCH (13:00)
--- NOTE | 2019-09-24 14:39 | PRG ---
DATE OF SERVICE: 09/24/2019 SUBJECTIVE: Mr. Burroughs apparently had a rough night. Both his Ativan and risperidone were increased. He is resting now. His spouse is in the room. His urinalysis was negative for any signs of infection. OBJECTIVE: VITAL SIGNS: He is afebrile. Heart rate 92, respirations 16, oxygen saturation 96% on room air, blood pressure 140/66. CARDIOVASCULAR: S1, S2 plus. RESPIRATORY: Normal vesicular breath sounds. ABDOMEN: Soft, nontender. Bowel sounds in all quadrants. EXTREMITIES: Without cyanosis or clubbing. PEG tube site is healthy. CENTRAL NERVOUS SYSTEM: Sleeping, but arousable, confused. IMPRESSION: 1. Altered mental status, status post bowel obstruction and surgery with no evidence for infectious or metabolic etiology. 2. Hypertension. 3. Dyslipidemia. 4. Degenerative joint disease. 5. Gastroesophageal reflux disease. 6. Gout. 7. Decreased p.o. intake, requiring PEG tube placement. PLAN: 1. Continue current medications. 2. Nutritional support with PEG feeding and aspiration precautions. 3. DVT and stress ulcer prophylaxis. 4. Decubitus precautions. 5. PEG tube care. 6. Routine laboratory values. 7. Dr. Jesus mccabe. Job ID: [id number]
[2019-09-24] MEDS: clonazePAM 0.5 MG TAB PO SCH (20:59)
[2019-09-24] MEDS: traZODone HCl 50 MG TAB PO SCH (20:59)
[2019-09-24] MEDS: Melatonin 3 MG TAB PO SCH (21:00)
[2019-09-25] MEDS: Enoxaparin Sodium 40 MG/0.4 ML SYRINGE SC SCH (09:10)
[2019-09-25] MEDS: Lisinopril 10 MG TAB PO SCH (09:11)
[2019-09-25] MEDS: Fluconazole 100 MG TAB PO SCH (09:11)
[2019-09-25] MEDS: risperiDONE 0.5 MG TAB PO SCH ×2 (09:12→21:07)
[2019-09-25] MEDS: ZONISAMIDE 100 MG PO SCH ×2 (09:12→21:08)
[2019-09-25] MEDS: Lorazepam 0.5 MG TAB PER TUBE PRN (09:12)
--- NOTE | 2019-09-25 20:20 | PRG ---
DATE OF SERVICE: 09/25/2019 SUBJECTIVE: Mr. Burroughs is an 84-year-old white male, presented to the emergency room at [facility] with bowel obstruction. Eventually, wound up at [facility] and was admitted by Dr. Tao. He had laparoscopic lysis of adhesions, postoperatively did well, but he had significant altered mental status problems. Eventually, he had a PEG tube placed because he was not eating. He was transferred to [facility] for PT, OT, and continued therapy. OBJECTIVE: VITAL SIGNS: Today reveal blood pressure 159/72, pulse 88 to 93, respirations 18 to 20, O2 saturation 97% on room air, T-max 98.2. GENERAL: This is a well-developed, well-nourished, thin white male, in no apparent distress at this time. HEENT: Reveals normocephalic and nontraumatic cranium. The pupils are equally round and reactive. Extraocular movements are intact. Nose and throat are slightly dry. NECK: Supple without masses, nodes, or bruits. CHEST: Clear to auscultation. No rales, rhonchi, or wheezes are heard. HEART: Reveals a regular rate and rhythm without murmurs, gallops, or rubs. ABDOMEN: Soft, nontender without organomegaly. Normal bowel sounds are noted. No rebound or guarding is noted. GENITOURINARY: Deferred. EXTREMITIES: Reveal no clubbing, cyanosis, or edema. NEUROLOGIC: The patient seems slightly more awake and alert. No focal deficits are noted. The patient did answer questions and was hearing a little bit better. His family did bring his hearing aids, but he does not like to put him in his ears. ASSESSMENT: 1. Continued altered mental status, possibly slightly a little bit better today. 2. Status post bowel obstruction, post lysis of adhesions, tolerating some fluids but still requires PEG tube for adequate nutrition. 3. Hypertension. 4. Extremely hard of hearing. 5. Bipolar disease. 6. Generalized weakness. PLAN: 1. Continue to encourage the family nurse to put his hearing aids in. 2. Continue to encourage the patient to eat and to drink with honey thickened liquids. 3. Continue PEG tube feedings until he is able to adequately supplies nourishment. 4. Continue present medications. 5. Monitor the patient's blood pressure closely and adjust medications as needed. 6. Decubitus precautions. 7. Physical therapy and occupational therapy. 8. Speech therapy. Job ID: [id number]
[2019-09-25] MEDS: clonazePAM 0.5 MG TAB PO SCH (21:07)
[2019-09-25] MEDS: traZODone HCl 50 MG TAB PO SCH (21:08)
[2019-09-25] MEDS: Melatonin 3 MG TAB PO SCH (21:08)
[2019-09-26] MEDS: Enoxaparin Sodium 40 MG/0.4 ML SYRINGE SC SCH (09:22)
[2019-09-26] MEDS: Fluconazole 100 MG TAB PO SCH (09:23)
[2019-09-26] MEDS: risperiDONE 0.5 MG TAB PO SCH ×2 (09:23→22:16)
[2019-09-26] MEDS: ZONISAMIDE 100 MG PO SCH ×2 (09:24→22:16)
[2019-09-26] MEDS: Lisinopril 10 MG TAB PO SCH (09:27)
--- NOTE | 2019-09-26 10:21 | PRG ---
DATE OF SERVICE: 09/26/2019 SUBJECTIVE: Mr. Burroughs is an 84-year-old white male presented to [facility] with bowel obstruction, sent home and presented to ER at [facility] and was admitted. Treated conservatively, but that did not help and so he was taken to the surgical suite and had a laparoscopic lysis of adhesions. Postoperatively did well but would not eat, had to have a PEG tube placed. Eventually, he was stabilized and now was transferred to [facility] for PT and OT and continued therapy. He has had some significant mental status changes and altered mental status. His states he has not been like this before. OBJECTIVE: VITAL SIGNS: Today reveal the patient's blood pressure this morning was 131/62, pulse 88 to 99, respirations 20, O2 saturation 93% to 96% on room air, T-max 98.3. GENERAL: On physical exam, this is an alert white male, oriented to person, but not place or time. He is much more conversational and not as combative with me today. He answered all my questions appropriately. HEENT: Reveals normocephalic and nontraumatic cranium. Pupils are equally round and reactive. Extraocular movements are intact. Nose and throat are still slightly dry. NECK: Supple without masses, nodes, or bruits. CHEST: Clear to auscultation. No rales, rhonchi, wheezes, or cough is heard. HEART: Reveals a regular rate and rhythm without murmurs, gallops, or rubs. ABDOMEN: Soft, nontender without organomegaly. Normal bowel sounds are noted in all 4 quadrants. No rebound or guarding is noted. : Deferred. EXTREMITIES: Reveal no clubbing, cyanosis, or edema. NEUROLOGIC: The patient seems much more attentive and alert and able to answer questions today. ASSESSMENT: 1. Altered mental status, slightly better. 2. Status post bowel obstruction post lysis of adhesions and tolerating some fluids, but still requires PEG tube for adequate nutrition. 3. Hypertension. 4. Bipolar disease. 5. Extremely hard of hearing. 6. Generalized weakness. PLAN: 1. Continue to encourage the patient to eat and drink with honey thickened liquids. 2. Continue PEG tube feedings and he was able to adequately eat enough to keep his nourishment up. 3. Continue to monitor the patient's blood pressure closely, adjust medications as needed. 4. Decubitus precautions. 5. Stress ulcer prophylaxis. 6. Continue present medications. 7. Physical therapy and occupational therapy. 8. Speech therapy. Job ID: [id number]
[2019-09-26] MEDS ORDERED: Sodium Chloride 0.9% 500 ML IVPB SCH (12:30)
[2019-09-26] MEDS: Melatonin 3 MG TAB PO SCH (22:15)
[2019-09-26] MEDS: traZODone HCl 50 MG TAB PO SCH (22:15)
[2019-09-26] MEDS: clonazePAM 0.5 MG TAB PO SCH (22:15)
[2019-09-27] MEDS: Enoxaparin Sodium 40 MG/0.4 ML SYRINGE SC SCH (09:31)
[2019-09-27] MEDS: Fluconazole 100 MG TAB PO SCH (09:32)
[2019-09-27] MEDS: Lisinopril 10 MG TAB PO SCH (09:32)
[2019-09-27] MEDS: risperiDONE 0.5 MG TAB PO SCH ×2 (09:32→21:31)
[2019-09-27] MEDS: ZONISAMIDE 100 MG PO SCH ×2 (09:34→21:30)
[2019-09-27] MEDS ORDERED: Sodium Chloride 0.9% 500 ML IVPB ONE (11:30)
--- NOTE | 2019-09-27 11:47 | PRG ---
DATE OF SERVICE: 09/27/2019 SUBJECTIVE: Mr. Burroughs is an 84-year-old white male, who had a small bowel obstruction, and eventually, had a laparoscopic adhesiolysis done by Dr. Daniel Tao. He would not eat and had to have a PEG tube placed. Eventually, he stabilized and now is transferred to [facility] for PT and OT and continued therapy. Yesterday in therapy, the patient got orthostatic when he got up for therapy. We did give him a 500 mL bolus yesterday, which did help. Again, the patient is orthostatic this morning for therapy. We will give him another bolus, but we will recheck his dietary oral intake through his PEG tube since he is not eating very much. We will also do lab work to see what his BUN and creatinine are, his BNP, and a CBC. OBJECTIVE: VITAL SIGNS: This morning, reveal blood pressure early this morning 176/84. When the patient stood for therapy, he became dizzy and blood pressure was taken, which revealed a blood pressure of 72/45. Pulse this morning 88 to 92, respirations 18, O2 saturation 96% on room air, and T-max 96.4. GENERAL: This is a well-developed, thin white male, in no apparent distress at this time. HEENT: Reveals normocephalic and nontraumatic cranium. Pupils are equal, round, and reactive. Extraocular movements are intact. Nose and throat are dry this morning. NECK: Supple without masses, nodes, or bruits. CHEST: Clear to auscultation. No rales, rhonchi, wheezes, or cough is heard. HEART: Reveals a regular rate and rhythm without murmurs, gallops, or rubs. ABDOMEN: Soft and nontender without organomegaly. The PEG tube is clean. No significant redness or drainage is noted. GENITOURINARY: Deferred. EXTREMITIES: Reveal no clubbing, cyanosis, or edema. NEUROLOGIC: The patient is stable and does better when he can hear what you are saying. ASSESSMENT: 1. Orthostatic hypotension. 2. Altered mental status, stable. 3. Hypertension. 4. Bipolar disease. 5. Extremely hard of hearing. 6. Generalized weakness. 7. Status post bowel obstruction, post lysis of adhesions by Dr. Daniel Tao and tolerating some fluids at times, but still requires PEG tube for adequate nutrition. PLAN: 1. We will consult dietary to make sure that we are getting enough liquids and encouraged the patient to try to drink more. 2. Continue PEG tube feedings since the patient is unable to adequately provide enough nutrition from self. 3. Continue to monitor the patient's blood pressure closely. 4. Bolus of normal saline 500 mL now. 5. Repeat labs tomorrow. 6. Decubitus precautions. 7. Stress ulcer prophylaxis. 8. Continue present medications. 9. Physical therapy and occupational therapy. 10. Speech therapy. Job ID: [id number]
[2019-09-27 18:10] LABS: Bilirubin Negative (Negative); Blood, Urine Negative (Negative); Clarity Clear (Clear); Glucose, Urine (Dipstick) Negative (Negative); Leukocyte Negative (Negative); Nitrite Negative (Negative); Protein, Urine (Dipstick) Negative (Neg-Trace); Urobilinogen 0.2 mg/dL (Less than 2)
[2019-09-27 18:19] LABS: Bacteria/HPF 1+ HPF (None Seen); RBC/HPF 0-3 HPF (0-3); Squamous Epithelial 0-3 HPF (0-3); WBC/HPF 0-3 HPF (0-3)
[2019-09-27] MEDS: Melatonin 3 MG TAB PO SCH (21:30)
[2019-09-27] MEDS: Lorazepam 0.5 MG TAB PER TUBE PRN (21:30)
[2019-09-27] MEDS: Acetaminophen 500 MG TAB PER TUBE PRN (21:30)
[2019-09-27] MEDS: traZODone HCl 50 MG TAB PO SCH (21:31)
[2019-09-27] MEDS: clonazePAM 0.5 MG TAB PO SCH (21:31)
[2019-09-28] MEDS: Enoxaparin Sodium 40 MG/0.4 ML SYRINGE SC SCH (10:44)
[2019-09-28] MEDS: Acetaminophen 500 MG TAB PER TUBE PRN ×3 (10:45→23:11)
[2019-09-28] MEDS: risperiDONE 0.5 MG TAB PO SCH ×2 (10:45→23:16)
[2019-09-28] MEDS: Lisinopril 10 MG TAB PO SCH (10:45)
[2019-09-28] MEDS: Fluconazole 100 MG TAB PO SCH (10:45)
[2019-09-28] MEDS: Lorazepam 0.5 MG TAB PER TUBE PRN ×2 (10:46→23:09)
[2019-09-28] MEDS: ZONISAMIDE 100 MG PO SCH ×2 (10:47→23:07)
[2019-09-28 12:33] LABS: #Eosinphils 0.1 thou/uL (0.0-0.7); #Lymphocytes 1.1 thou/uL (1.20-3.40); #Monocytes 0.8 thou/uL (0.11-0.59); #Neutrophils 6.6 thou/uL (1.40-6.50); %Basophils 0.4 % (0.0-1.0); %Eosinophils 1.4 % (0.0-10.0); %Lymphocytes 12.5 % (21.0-51.0); %Monocytes 9.2 % (0.0-10.0); %Neutrophils 76.4 % (42.0-75.0); Hemoglobin 9.7 g/dL (14.0-18.0); Mean Corpuscular HGB CONC 31.3 g/dL (32.0-36.0); Mean Corpuscular Hemoglobin 28.7 pg (27.0-31.0); Mean Corpuscular Volume 91.5 fL (78.0-98.0); Mean Platelet Volume 9.9 fL (7.4-10.4); Platelet Count 134 thou/uL (130-400); RBC Distribution Width 13.5 % (11.5-14.5); Red Blood Cell (RBC) Count 3.37 mill/uL (4.70-6.10); White Blood Cell (WBC) Count 8.6 thou/uL (4.8-10.8)
[2019-09-28 12:48] LABS: ALT (SGPT) 39 U/L (8-55); AST (SGOT) 23 U/L (5-34); Albumin 3.2 g/dL (3.4-4.8); Alkaline Phosphatase 119 U/L (40-110); Anion Gap 12 mmol/L (10-20); BUN (Urea Nitrogen) 32 mg/dL (8.4-25.7); Bilirubin, Total 0.2 mg/dL (0.2-1.2); Calc. Creatinine Clearance 60 mL/min (70-130); Calcium 8.9 mg/dL (7.8-10.44); Carbon Dioxide 25 mmol/L (23-31); Chloride 107 mmol/L (98-107); Estimated GFR-MDRD 77; Globulin 2.3 g/dL (2.4-3.5); Glucose 136 mg/dL (83-110); Potassium 3.9 mmol/L (3.5-5.1); Protein, Total 5.5 g/dL (5.8-8.1); Sodium 140 mmol/L (136-145)
--- NOTE | 2019-09-28 22:13 | PRG ---
DATE OF SERVICE: 09/28/2019 SUBJECTIVE: Mr. Burroughs is a very pleasant 84-year-old white male, has small bowel obstruction, was admitted to [facility] where laparoscopic adhesiolysis was done by Dr. Daniel Tao. Unfortunately, postoperatively, the patient did not eat very well and had to have a PEG tube placed. Eventually, he was stabilized and transferred to [facility] for physical therapy and occupational therapy and continued therapy. The patient was doing very well this morning, but I returned to the hospital this evening and he had pulled his PEG tube out. We are calling the hospital in [place] to see if they can be transferred to replace it. The patient is still not having significant oral intake to sustain himself. OBJECTIVE: VITAL SIGNS: Today reveal blood pressure 127/60, pulse 85 to 93, respirations 18, O2 saturation 96% on room air, T-max 97.2. GENERAL: This is a well-developed, well-nourished, elderly 84-year-old white male, in no apparent distress at this time. HEENT: Reveals normocephalic and nontraumatic cranium. Pupils are equal, round, and reactive. Extraocular movements are intact. Nose and throat are slightly dry. NECK: Supple without masses, nodes, or bruits. CHEST: Clear to auscultation. No rales, rhonchi, or wheezes heard. HEART: Reveals a regular rate and rhythm without murmurs, gallops, or rubs. ABDOMEN: Soft, nontender without organomegaly. The PEG tube was clean this morning with no significant redness or drainage. It is presently out. GENITOURINARY: Deferred. EXTREMITIES: Reveal no clubbing, cyanosis, or edema. NEUROLOGIC: The patient is stable. It does not matter what he can hear or what he is saying. He is very hard of hearing. He does have hearing aids, but does not like wearing them. ASSESSMENT: 1. The patient just has pulled out his percutaneous endoscopic gastrostomy tube and will be transferred back to [place] for replacement. 2. Orthostatic hypotension. 3. Altered mental status, stable. 4. Hypertension. 5. Bipolar disease. 6. Extremely hard of hearing. 7. Generalized weakness. 8. Status post bowel obstruction, status post lysis of adhesion by Dr. Daniel Tao. 9. Tolerating some fluids, but still requires percutaneous endoscopic gastrostomy tube for adequate nutrition. PLAN: 1. Continue present nutritional supplementation. 2. Continue PEG tube feedings. 3. Continue to monitor the patient's blood pressure closely. 4. Bolus of normal saline was done yesterday for orthostasis. 5. Repeat labs today was done. 6. Decubitus precautions. 7. Stress ulcer prophylaxis. 8. Continue present medications. 9. Physical therapy and occupational therapy. 10. Speech therapy. Job ID: [id number]
[2019-09-28] MEDS: clonazePAM 0.5 MG TAB PO SCH (23:08)
[2019-09-28] MEDS: traZODone HCl 50 MG TAB PO SCH (23:09)
[2019-09-28] MEDS: Melatonin 3 MG TAB PO SCH (23:11)
[2019-09-29] MEDS: ZONISAMIDE 100 MG PO SCH ×2 (09:55→20:47)
[2019-09-29] MEDS: Enoxaparin Sodium 40 MG/0.4 ML SYRINGE SC SCH (09:55)
[2019-09-29] MEDS: Fluconazole 100 MG TAB PO SCH (09:56)
[2019-09-29] MEDS: Acetaminophen 500 MG TAB PER TUBE PRN ×3 (09:56→20:48)
[2019-09-29] MEDS: Lisinopril 10 MG TAB PO SCH (09:56)
[2019-09-29] MEDS: risperiDONE 0.5 MG TAB PO SCH ×2 (09:56→20:48)
[2019-09-29] MEDS: Lorazepam 0.5 MG TAB PER TUBE PRN (17:08)
[2019-09-29] MEDS: Melatonin 3 MG TAB PO SCH (20:48)
[2019-09-29] MEDS: clonazePAM 0.5 MG TAB PO SCH (20:48)
[2019-09-29] MEDS: traZODone HCl 50 MG TAB PO SCH (20:48)
[2019-09-30] MEDS: ZONISAMIDE 100 MG PO SCH ×2 (09:32→21:09)
[2019-09-30] MEDS: Enoxaparin Sodium 40 MG/0.4 ML SYRINGE SC SCH (09:32)
[2019-09-30] MEDS: risperiDONE 0.5 MG TAB PO SCH ×2 (09:33→21:09)
[2019-09-30] MEDS: Fluconazole 100 MG TAB PO SCH (09:33)
[2019-09-30] MEDS: Lisinopril 10 MG TAB PO SCH (09:33)
[2019-09-30] MEDS: Lorazepam 0.5 MG TAB PER TUBE PRN ×2 (15:00→21:11)
[2019-09-30] MEDS: Melatonin 3 MG TAB PO SCH (21:10)
[2019-09-30] MEDS: Acetaminophen 500 MG TAB PER TUBE PRN (21:11)
[2019-09-30] MEDS: traZODone HCl 50 MG TAB PO SCH (21:11)
[2019-09-30] MEDS: clonazePAM 0.5 MG TAB PO SCH (21:11)
--- NOTE | 2019-10-01 08:10 | PRG ---
DATE OF SERVICE: 09/30/2019 SUBJECTIVE: The patient is sleeping, lying in bed with his sitter and his in the room. Apparently, he has tolerated having PEG tube placed again and is getting stronger on his PEG tube feeding, but is still not eating well. OBJECTIVE: VITAL SIGNS: Temperature is 96.9, pulse 82, blood pressure 175/77, and respirations 18. LUNGS: Clear. CARDIAC: Shows regular rhythm. ABDOMEN: Soft and nontender. LABORATORY DATA: Most recent prealbumin 29. ASSESSMENT: 1. Stable hypertension. 2. Stable bipolar disease. 3. Increasing strength and nutrition. 4. Persistent poor oral intake secondary to altered mental status, which appears to be stable and not improving. PLAN: Continue supplemental feeding. Continue sitter at the bedside. Continue to monitor vital signs closely with saline as needed and may increase tube feeding. Job ID: [id number]
[2019-10-01] MEDS: risperiDONE 0.5 MG TAB PO SCH ×2 (08:29→20:47)
[2019-10-01] MEDS: ZONISAMIDE 100 MG PO SCH ×2 (08:29→20:40)
[2019-10-01] MEDS: Enoxaparin Sodium 40 MG/0.4 ML SYRINGE SC SCH (08:29)
[2019-10-01] MEDS: Lisinopril 10 MG TAB PO SCH (08:30)
[2019-10-01] MEDS: Fluconazole 100 MG TAB PO SCH (08:30)
[2019-10-01] MEDS: Acetaminophen 500 MG TAB PER TUBE PRN (20:40)
[2019-10-01] MEDS: Melatonin 3 MG TAB PO SCH (20:40)
[2019-10-01] MEDS: clonazePAM 0.5 MG TAB PO SCH (20:40)
[2019-10-01] MEDS: Lorazepam 0.5 MG TAB PER TUBE PRN (20:41)
[2019-10-01] MEDS: traZODone HCl 50 MG TAB PO SCH (20:41)
[2019-10-01] MEDS ORDERED: risperiDONE 0.5 MG TAB ONE (20:46)
[2019-10-02] MEDS ORDERED: risperiDONE 0.25 MG TAB PO SCH (09:15)
[2019-10-02] MEDS: Fluconazole 100 MG TAB PO SCH (09:42)
[2019-10-02] MEDS: Enoxaparin Sodium 40 MG/0.4 ML SYRINGE SC SCH (09:42)
[2019-10-02] MEDS: Lisinopril 10 MG TAB PO SCH (09:43)
[2019-10-02] MEDS: ZONISAMIDE 100 MG PO SCH ×2 (09:44→21:09)
[2019-10-02] MEDS: risperiDONE 0.5 MG TAB PO SCH (10:06)
--- NOTE | 2019-10-02 16:22 | PRG ---
DATE OF SERVICE: 10/02/2019 SUBJECTIVE: Mr. Burroughs is a well-developed, well-nourished, elderly 84-year-old white male, who was initially admitted to [facility] for laparoscopic adhesiolysis by Dr. Daniel Tao. Postoperatively, the patient did not eat well and had to have a PEG tube placed. He had some altered mental status and metabolic encephalopathy. He was transferred to [facility] for PT and OT and continued therapy. The patient had a great day yesterday, where he walked a little bit to the bathroom and back with assistance. He also ate 95% of lunch and 75% of breakfast yesterday, but he does not eat very well today. OBJECTIVE: VITAL SIGNS: Today reveal blood pressure 100/57, pulse 82, respirations 18, oxygen sat is 100% on room air, T-max is 96.4. GENERAL: This is a well-developed, well-nourished, 84-year-old white male, in no apparent distress at this time. He has begun to understand better in his face. HEENT: Normocephalic and nontraumatic cranium. Pupils are equal, round, and reactive. Extraocular movements are intact. Nose and throat are still dry. NECK: Supple without masses, nodes, or bruits. CHEST: Clear to auscultation. No rales, rhonchi, wheezes, or cough is heard. HEART: Reveals a regular rate and rhythm without murmurs, gallops, or rubs. ABDOMEN: Soft, nontender. Normal bowel sounds are noted. No rebound or guarding is noted. PEG tube is clean and working. GENITOURINARY: Deferred. EXTREMITIES: Reveal no clubbing, cyanosis, or edema. NEUROLOGIC: The patient is very hard of hearing directly to him. ASSESSMENT: 1. Orthostatic hypotension treated well with WENCESLAO hose and abdominal binder. 2. Altered mental status, gradually improved. 3. Hypertension. 4. Bipolar disease. 5. Extremely hard of hearing. 6. Status post bowel obstruction, status post lysis of adhesions by Dr. Daniel Tao. 7. Percutaneous PEG tube, tolerating some oral, but not enough to sustain himself. 8. Generalized weakness. PLAN: 1. Continue PEG, nutritional supplementation. 2. Continue to monitor the patient's blood pressure closely. 3. Stress ulcer prophylaxis. 4. Decubitus precautions. 5. DVT prophylaxis per primary service. 6. Continue present medications. 7. Speech therapy. 8. Continue physical therapy and occupational therapy. Job ID: [id number]
[2019-10-02] MEDS: Acetaminophen 500 MG TAB PER TUBE PRN (21:07)
[2019-10-02] MEDS: traZODone HCl 50 MG TAB PO SCH (21:07)
[2019-10-02] MEDS: Lorazepam 0.5 MG TAB PER TUBE PRN (21:07)
[2019-10-02] MEDS: Melatonin 3 MG TAB PO SCH (21:08)
[2019-10-02] MEDS: risperiDONE 0.25 MG TAB PO SCH (21:08)
[2019-10-02] MEDS: clonazePAM 0.5 MG TAB PO SCH (21:08)
[2019-10-03] MEDS: Enoxaparin Sodium 40 MG/0.4 ML SYRINGE SC SCH (09:37)
[2019-10-03] MEDS: Lisinopril 10 MG TAB PO SCH (09:37)
[2019-10-03] MEDS: risperiDONE 0.25 MG TAB PO SCH ×2 (09:38→20:23)
[2019-10-03] MEDS: ZONISAMIDE 100 MG PO SCH ×2 (09:38→20:24)
[2019-10-03] MEDS: Fluconazole 100 MG TAB PO SCH (09:38)
[2019-10-03] MEDS: Acetaminophen 500 MG TAB PER TUBE PRN (09:38)
[2019-10-03] MEDS: Lorazepam 0.5 MG TAB PER TUBE PRN (09:38)
--- NOTE | 2019-10-03 13:44 | PRG ---
DATE OF SERVICE: 10/03/2019 SUBJECTIVE: Mr. Burroughs is doing the same. Pleasantly confused. Has a sitter. No family at bedside. Tolerating his tube feeds. OBJECTIVE: VITAL SIGNS: He is afebrile. Heart rate 95, respirations 20, oxygen saturation 96% on room air, blood pressure 152/85. CARDIOVASCULAR: S1 and S2 plus. RESPIRATORY: Normal vesicular breath sounds. ABDOMEN: Soft and nontender. Bowel sounds heard in all quadrants. EXTREMITIES: Without cyanosis or clubbing. CENTRAL NERVOUS SYSTEM: Awake, but confused. Generalized weakness. IMPRESSION: 1. Encephalopathy, likely multifactorial. 2. Orthostatic hypotension, much improved with WENCESLAO hose and abdominal binder. 3. Recent bowel obstruction, status post lysis of adhesions. 4. Percutaneous endoscopic gastrostomy tube placement for poor p.o. intake. 5. Deconditioning. 6. Gastroesophageal reflux disease. PLAN: 1. Continue current medications. 2. Nutritional support with PEG feeding. 3. Aspiration precautions. 4. PEG tube care. 5. DVT and stress ulcer prophylaxis. 6. Decubitus precaution. 7. Physical therapy. 8. Routine laboratory values. Job ID: [id number]
[2019-10-03] MEDS: traZODone HCl 50 MG TAB PO SCH (20:23)
[2019-10-03] MEDS: clonazePAM 0.5 MG TAB PO SCH (20:23)
[2019-10-03] MEDS: Melatonin 3 MG TAB PO SCH (20:23)
[2019-10-04] MEDS: Lorazepam 0.5 MG TAB PER TUBE PRN ×2 (03:38→18:00)
[2019-10-04] MEDS: Lisinopril 10 MG TAB PO SCH (08:57)
[2019-10-04] MEDS: risperiDONE 0.25 MG TAB PO SCH ×2 (08:58→20:23)
[2019-10-04] MEDS: Fluconazole 100 MG TAB PO SCH (08:58)
[2019-10-04] MEDS: Enoxaparin Sodium 40 MG/0.4 ML SYRINGE SC SCH (09:06)
[2019-10-04] MEDS: ZONISAMIDE 100 MG PO SCH ×2 (09:35→20:23)
--- NOTE | 2019-10-04 16:42 | PRG ---
DATE OF SERVICE: 10/04/2019 SUBJECTIVE: Mr. Burroughs is doing the same. He is confused. He is trying to get out of bed. No family at bedside. Sitter in the room. OBJECTIVE: VITAL SIGNS: He is afebrile. Heart rate 92, respirations 18, oxygen saturation 94% on room air, blood pressure 124/60. CARDIOVASCULAR: S1 and S2 plus. RESPIRATORY: Normal vesicular breath sounds. ABDOMEN: Soft, nontender. Bowel sounds heard in all quadrants. PEG tube site is healthy. Abdominal binder in place. EXTREMITIES: Without cyanosis or clubbing. CENTRAL NERVOUS SYSTEM: Awake, but confused. IMPRESSION: 1. Encephalopathy, likely multifactorial. 2. Poor p.o. intake, requiring PEG tube placement. 3. Deconditioning. 4. Gastroesophageal reflux disease. 5. Osteoarthritis. PLAN: 1. Continue current medications. 2. Tube feeding with aspiration precautions. 3. PEG tube care. 4. DVT and stress ulcer prophylaxis. 5. Monitor cognitive and neuro status. 6. Routine laboratory values. Job ID: [id number]
[2019-10-04] MEDS: Melatonin 3 MG TAB PO SCH (20:22)
[2019-10-04] MEDS: clonazePAM 0.5 MG TAB PO SCH (20:22)
[2019-10-04] MEDS: traZODone HCl 50 MG TAB PO SCH (20:23)
[2019-10-05] MEDS: Fluconazole 100 MG TAB PO SCH (09:19)
[2019-10-05] MEDS: Lisinopril 10 MG TAB PO SCH (09:20)
[2019-10-05] MEDS: Enoxaparin Sodium 40 MG/0.4 ML SYRINGE SC SCH (09:21)
[2019-10-05] MEDS: risperiDONE 0.25 MG TAB PO SCH ×2 (09:21→20:58)
[2019-10-05] MEDS: ZONISAMIDE 100 MG PO SCH ×2 (09:24→21:00)
[2019-10-05] MEDS: Lorazepam 0.5 MG TAB PER TUBE PRN (12:17)
--- NOTE | 2019-10-05 13:16 | PRG ---
DATE OF SERVICE: 10/05/2019 SUBJECTIVE: Mr. Burroughs apparently was agitated this morning. He is finally resting with the Ativan. No concerns or questions discussed with nursing. No family at bedside. Tolerating his feeding. OBJECTIVE: VITAL SIGNS: He is afebrile, heart rate is 83, respirations 18, oxygen saturation is 97% on room air, and blood pressure is 123/59. CARDIOVASCULAR SYSTEM: S1 and S2 plus. RESPIRATORY SYSTEM: Normal vesicular breath sounds. ABDOMEN: Soft and nontender. Bowel sounds heard in all quadrants. EXTREMITIES: Without cyanosis or clubbing. CENTRAL NERVOUS SYSTEM: Awake, but confused. No change. PEG tube site is healthy. IMPRESSION: 1. Decreased p.o. intake, requiring PEG tube placement. 2. Encephalopathy, likely multifactorial. 3. Gastroesophageal reflux disease. 4. Osteoarthritis. 5. Deconditioning. 6. Recent surgery for bowel obstruction. PLAN: 1. Continue current medications. 2. Nutritional support with PEG tube feeding and aspiration precautions. 3. PEG tube care. 4. DVT and stress ulcer prophylaxis. 5. Decubitus precaution. 6. Physical therapy. 7. Routine laboratory values. No family at bedside. Job ID: [id number]
[2019-10-05] MEDS: traZODone HCl 50 MG TAB PO SCH (20:58)
[2019-10-05] MEDS: clonazePAM 0.5 MG TAB PO SCH (20:59)
[2019-10-05] MEDS: Melatonin 3 MG TAB PO SCH (20:59)
[2019-10-06] MEDS: Fluconazole 100 MG TAB PO SCH (08:41)
[2019-10-06] MEDS: Enoxaparin Sodium 40 MG/0.4 ML SYRINGE SC SCH (08:41)
[2019-10-06] MEDS: Lisinopril 10 MG TAB PO SCH (08:42)
--- NOTE | 2019-10-06 08:42 | PRG ---
DATE OF SERVICE: 10/06/2019 SUBJECTIVE: Mr. Burroughs is doing the same. Continues to need a sitter. Continues to remain confused. OBJECTIVE: VITAL SIGNS: He is afebrile. Heart rate 91, respirations 18, oxygen saturation 97% on room air, blood pressure 99/53. CARDIOVASCULAR: S1 and S2 plus. RESPIRATORY: Normal vesicular breath sounds. ABDOMEN: Soft, nontender. Bowel sounds heard in all quadrants. PEG tube site is healthy. EXTREMITIES: Without cyanosis or clubbing. CENTRAL NERVOUS SYSTEM: Awake and confused. No change. IMPRESSION: 1. Persistent cognitive deficits. 2. Bowel obstruction, requiring surgery. 3. Poor p.o. intake, requiring PEG tube placement. 4. Hypertension. 5. Dyslipidemia. 6. Degenerative joint disease. 7. Gastroesophageal reflux disease. 8. Gout. PLAN: 1. Continue current medications. 2. Nutritional support with PEG tube feeding and aspiration precautions. 3. PEG tube care. 4. DVT and stress ulcer prophylaxis. 5. Decubitus precautions. 6. Monitor cognition and neuro status. 7. Therapy as tolerated. Job ID: [id number]
[2019-10-06] MEDS: ZONISAMIDE 100 MG PO SCH ×2 (08:45→20:27)
[2019-10-06] MEDS: risperiDONE 0.25 MG TAB PO SCH ×2 (08:45→20:27)
[2019-10-06] MEDS: Acetaminophen 500 MG TAB PER TUBE PRN (08:46)
[2019-10-06] MEDS: Lorazepam 0.5 MG TAB PER TUBE PRN (16:58)
[2019-10-06] MEDS: clonazePAM 0.5 MG TAB PO SCH (20:27)
[2019-10-06] MEDS: traZODone HCl 50 MG TAB PO SCH (20:27)
[2019-10-06] MEDS: Melatonin 3 MG TAB PO SCH (20:27)
[2019-10-07] MEDS: Enoxaparin Sodium 40 MG/0.4 ML SYRINGE SC SCH (08:32)
[2019-10-07] MEDS: Fluconazole 100 MG TAB PO SCH (08:33)
[2019-10-07] MEDS: Lisinopril 10 MG TAB PO SCH (08:33)
[2019-10-07] MEDS: risperiDONE 0.25 MG TAB PO SCH ×2 (08:34→21:24)
[2019-10-07] MEDS: ZONISAMIDE 100 MG PO SCH ×2 (08:35→21:26)
[2019-10-07] MEDS: Lorazepam 0.5 MG TAB PER TUBE PRN (08:35)
--- NOTE | 2019-10-07 14:57 | PRG ---
DATE OF SERVICE: 10/07/2019 SUBJECTIVE: Mr. Burroughs is doing the same, pleasantly confused. He hardly ate anything for lunch. They are also having trouble making him drink fluids, so we will add free water flushes 240 mL q.shift. Also reinforced his WENCESLAO hose as well as his abdominal binder for his orthostatic hypotension. OBJECTIVE: VITAL SIGNS: He is afebrile. Heart rate 87, respirations 18, oxygen saturation 97% on room air, blood pressure 157/70. CARDIOVASCULAR SYSTEM: S1 and S2 plus. RESPIRATORY SYSTEM: Normal vesicular breath sounds. ABDOMEN: Soft, nontender. PEG tube site is healthy. EXTREMITIES: Without cyanosis or clubbing. DJD. CENTRAL NERVOUS SYSTEM: No change. IMPRESSION: 1. Encephalopathy with persistent cognitive deficits, likely multifactorial. 2. Recent surgery for bowel obstruction. 3. Osteoarthritis. 4. Decreased p.o. intake, requiring PEG tube placement. 5. Orthostatic hypotension. 6. Deconditioning. 7. Gastroesophageal reflux disease. 8. Dyslipidemia. 9. History of gout. PLAN: 1. Continue current medications. 2. Nutritional support with PEG tube feeding and free water flushes of 240 mL q.shift. 3. Aspiration precautions. 4. PEG tube care. 5. Orthostatic hypotension precautions with abdominal binder and WENCESLAO hose. 6. Physical therapy as tolerated. 7. Encourage p.o. intake. Job ID: [id number]
[2019-10-07] MEDS: traZODone HCl 50 MG TAB PO SCH (21:24)
[2019-10-07] MEDS: Melatonin 3 MG TAB PO SCH (21:24)
[2019-10-07] MEDS: clonazePAM 0.5 MG TAB PO SCH (21:25)
[2019-10-08] MEDS: Enoxaparin Sodium 40 MG/0.4 ML SYRINGE SC SCH (08:39)
[2019-10-08] MEDS: Fluconazole 100 MG TAB PO SCH (08:39)
[2019-10-08] MEDS: Lisinopril 10 MG TAB PO SCH (08:39)
[2019-10-08] MEDS: ZONISAMIDE 100 MG PO SCH ×2 (08:40→20:58)
[2019-10-08] MEDS: risperiDONE 0.25 MG TAB PO SCH ×2 (08:40→20:57)
--- NOTE | 2019-10-08 15:23 | PRG ---
DATE OF SERVICE: 10/08/2019 SUBJECTIVE: Mr. Burroughs apparently slept through breakfast, but he apparently had a good lunch. His daughter is in the room. He denies any questions or concerns, and daughter is happy with his progress. He seems to be more awake and alert today. OBJECTIVE: VITAL SIGNS: He is afebrile, heart rate 84, respirations 16, oxygen saturation 96% on room air, blood pressure 101/57. CARDIOVASCULAR: S1 and S2 plus. RESPIRATORY: Normal vesicular breath sounds. ABDOMEN: Soft and nontender. Bowel sounds heard in all quadrants. EXTREMITIES: Without cyanosis or clubbing. CENTRAL NERVOUS SYSTEM: Pleasantly confused. No change. IMPRESSION: 1. Status post surgery for bowel obstruction. 2. Anorexia, requiring percutaneous endoscopic gastrostomy tube placement. 3. Persistent cognitive deficits. 4. Osteoarthritis. 5. Deconditioning. 6. Gastroesophageal reflux disease. 7. Dyslipidemia. PLAN: 1. Continue current medications. 2. Nutritional support with PEG tube feeding and aspiration precautions. 3. PEG tube care. 4. Continue abdominal binder and WENCESLAO hose. 5. Physical therapy. 6. Routine laboratory values. 7. Dr. Jesus mccabe. Job ID: [id number]
[2019-10-08] MEDS: traZODone HCl 50 MG TAB PO SCH (20:57)
[2019-10-08] MEDS: Melatonin 3 MG TAB PO SCH (20:57)
[2019-10-08] MEDS: clonazePAM 0.5 MG TAB PO SCH (20:57)
[2019-10-09 05:23] LABS: #Eosinphils 0.2 thou/uL (0.0-0.7); #Monocytes 1.1 thou/uL (0.11-0.59); %Basophils 0.4 % (0.0-1.0); %Eosinophils 1.5 % (0.0-10.0); %Lymphocytes 14.9 % (21.0-51.0); %Neutrophils 75.2 % (42.0-75.0); Hemoglobin 9.7 g/dL (14.0-18.0); Mean Corpuscular HGB CONC 32.4 g/dL (32.0-36.0); Mean Corpuscular Hemoglobin 29.1 pg (27.0-31.0); Mean Corpuscular Volume 90.1 fL (78.0-98.0); Mean Platelet Volume 10.3 fL (7.4-10.4); Platelet Count 147 thou/uL (130-400); RBC Distribution Width 13.5 % (11.5-14.5); Red Blood Cell (RBC) Count 3.32 mill/uL (4.70-6.10); White Blood Cell (WBC) Count 13.3 thou/uL (4.8-10.8)
[2019-10-09 05:40] LABS: Anion Gap 14 mmol/L (10-20); BUN (Urea Nitrogen) 33 mg/dL (8.4-25.7); Calc. Creatinine Clearance 60 mL/min (70-130); Calcium 8.9 mg/dL (7.8-10.44); Carbon Dioxide 24 mmol/L (23-31); Chloride 105 mmol/L (98-107); Estimated GFR-MDRD 74; Glucose 105 mg/dL (83-110); Potassium 4.1 mmol/L (3.5-5.1); Sodium 139 mmol/L (136-145)
--- NOTE | 2019-10-09 08:10 | RAD ---
EXAM: Single view of the chest HISTORY: Cough and congestion COMPARISON: 09/22/2019 FINDINGS: Single view of the chest shows a normal sized cardiomediastinal silhouette. There is no bertha dence of consolidation, mass, or pleural effusion. The bones are unremarkable. IMPRESSION: No evidence of acute cardiopulmonary disease
[2019-10-09] MEDS: Enoxaparin Sodium 40 MG/0.4 ML SYRINGE SC SCH (09:32)
[2019-10-09] MEDS: Fluconazole 100 MG TAB PO SCH (09:33)
[2019-10-09] MEDS: Lisinopril 10 MG TAB PO SCH (09:34)
[2019-10-09] MEDS: risperiDONE 0.25 MG TAB PO SCH ×2 (09:40→20:50)
[2019-10-09] MEDS: ZONISAMIDE 100 MG PO SCH ×2 (09:44→20:51)
[2019-10-09] MEDS: Melatonin 3 MG TAB PO SCH (20:50)
[2019-10-09] MEDS: traZODone HCl 50 MG TAB PO SCH (20:50)
[2019-10-09] MEDS: clonazePAM 0.5 MG TAB PO SCH (20:50)
--- NOTE | 2019-10-09 21:16 | PRG ---
DATE OF SERVICE: 10/09/2019 SUBJECTIVE: Mr. Burroughs is an elderly 84-year-old white male, admitted to [facility] for laparoscopic adhesiolysis by Dr. Daniel Tao. Postoperatively, the patient did not eat well and had to have a PEG tube placed. He had some altered mental status and metabolic encephalopathy. He was transferred to [facility] for physical therapy, occupational therapy, and speech therapy. The patient was seen this morning and was somewhat sleepy. The patient's nurse states that he is not eating well because he may be getting too much PEG feedings because that makes him not hungry. We felt like we may do bolus feedings only after he has not eaten. We will give that a trial. He also have a slight low-grade temperature, and those cause some concern about him having some aspiration or COPD or congestive heart failure. Chest x-ray was unremarkable. Labs are also done this morning, which revealed white count 13,000 with no source, hemoglobin 9.7, hematocrit 29.9, platelet count 147,000. Sodium is 139, potassium 4.1, chloride 105, carbon dioxide 25 with BUN of 33 and creatinine of 0.96. Urinalysis ordered that are not back yet. PHYSICAL EXAMINATION: GENERAL: This is a well-developed, elderly 84-year-old white male, who continues to have some cognition problems. HEENT: Normocephalic and nontraumatic cranium. Pupils are equal, round, and reactive. Extraocular movements are intact. Nose and throat are still tend to be dry. NECK: Supple without masses, nodes, or bruits. CHEST: Clear to auscultation. No rales, rhonchi, wheezes, or cough is heard. HEART: Reveals a regular rate and rhythm without murmurs, gallops, or rubs. ABDOMEN: Soft, nontender, slightly protuberant. Normal bowel sounds are noted. No rebound or guarding is noted. : PEG tube is still clean and working. GENITOURINARY: Deferred. EXTREMITIES: Reveal no clubbing, cyanosis, or edema. NEUROLOGIC: The patient has no focal deficits, but is still extremely hard of hearing understand. He did answer my questions today in appropriate manner, . ASSESSMENT: 1. Orthostatic hypotension, treated with WENCESLAO hose and abdominal binder. 2. Altered mental status, gradually improving. 3. Hypertension. 4. Bipolar disease. 5. Extremely hard of hearing. 6. Status post bowel obstruction, status post lysis of adhesions by Dr. Daniel Tao. 7. Percutaneous PEG tube in, tolerating some oral, but still not enough to sustain himself. 8. Generalized weakness. PLAN: 1. We will try to switch the patient to bolus feedings only after he has not eaten greater than 50% of meals. 2. Continue to monitor the patient's blood pressure closely. 3. Stress ulcer prophylaxis. 4. DVT prophylaxis. 5. Decubitus precautions. 6. Continue present medications. 7. Speech therapy. 8. Physical therapy and Occupational therapy. Job ID: [id number]
[2019-10-10 05:21] LABS: #Basophils 0.1 thou/uL (0.0-0.2); #Eosinphils 0.2 thou/uL (0.0-0.7); #Lymphocytes 1.8 thou/uL (1.20-3.40); #Monocytes 0.8 thou/uL (0.11-0.59); #Neutrophils 8.6 thou/uL (1.40-6.50); %Basophils 0.5 % (0.0-1.0); %Eosinophils 1.6 % (0.0-10.0); %Lymphocytes 15.6 % (21.0-51.0); %Monocytes 7.3 % (0.0-10.0); Hemoglobin 9.7 g/dL (14.0-18.0); Mean Corpuscular HGB CONC 32.1 g/dL (32.0-36.0); Mean Corpuscular Hemoglobin 28.7 pg (27.0-31.0); Mean Corpuscular Volume 89.5 fL (78.0-98.0); Mean Platelet Volume 11.1 fL (7.4-10.4); Platelet Count 134 thou/uL (130-400); RBC Distribution Width 13.4 % (11.5-14.5); Red Blood Cell (RBC) Count 3.39 mill/uL (4.70-6.10); White Blood Cell (WBC) Count 11.4 thou/uL (4.8-10.8)
[2019-10-10 08:13] LABS: Bilirubin Negative (Negative); Blood, Urine Negative (Negative); Clarity Cloudy (Clear); Glucose, Urine (Dipstick) Negative (Negative); Leukocyte Moderate (Negative); Nitrite Negative (Negative); Protein, Urine (Dipstick) Negative (Neg-Trace); Urobilinogen 0.2 mg/dL (Less than 2)
[2019-10-10 08:24] LABS: RBC/HPF 0-3 HPF (0-3)
[2019-10-10 08:25] LABS: Bacteria/HPF Rare-Few HPF (None Seen); Squamous Epithelial 0-3 HPF (0-3)
[2019-10-10] MEDS: Enoxaparin Sodium 40 MG/0.4 ML SYRINGE SC SCH (09:00)
[2019-10-10] MEDS: Lisinopril 10 MG TAB PO SCH (09:00)
[2019-10-10] MEDS: Fluconazole 100 MG TAB PO SCH (09:00)
[2019-10-10] MEDS: risperiDONE 0.25 MG TAB PO SCH ×2 (09:00→21:20)
[2019-10-10] MEDS: ZONISAMIDE 100 MG PO SCH ×2 (09:01→21:21)
--- NOTE | 2019-10-10 16:13 | PRG ---
DATE OF SERVICE: 10/10/2019 SUBJECTIVE: Mr. Burroughs is an 84-year-old white male, admitted to [facility] with laparoscopic adhesiolysis done by Dr. Daniel Tao. Postoperatively, did not eat very well and had to have a PEG tube placed. He had some altered mental status also and metabolic encephalopathy. He was transferred to [facility] for PT and OT and speech therapy. This morning, the patient seems to be a little more awake and alert, especially we get into his face and talk with him directly because he never has his hearing aids in. We are trying to wean him off his PEG tubes and getting to eat more so we are doing some bolus feedings at this time. He seems to be tolerating that fairly well. No family is at bedside at this time. He has no concerns or complaints today. LABORATORY DATA: Labs were done yesterday, which were actually pretty good. Urinalysis done this morning and showing only few white cells. OBJECTIVE: VITAL SIGNS: Today reveal blood pressure 134/60, pulse 74 to 83, respirations 18, O2 saturation 95% on room air, T-max 97.5. GENERAL: This is a well-developed, well-nourished, white male, who still continues to have some metabolic encephalopathy. HEENT: Normocephalic and nontraumatic cranium. Pupils are equally round and reactive. Extraocular movements are intact. Nose and throat dry, but clear. NECK: Supple without masses, nodes, or bruits. CHEST: Clear to auscultation. No rales, rhonchi, wheezes or cough is heard. HEART: Reveals a regular rate and rhythm without murmurs, gallops, or rubs. ABDOMEN: Soft, nontender, slightly protuberant without organomegaly. Normal bowel sounds are noted. No rebound or guarding is noted. PEG tube continues to work very well and we are doing bolus feedings at this time. : Deferred. EXTREMITIES: Reveal no clubbing, cyanosis, or edema. NEUROLOGIC: The patient has no focal deficits. It is noted the patient is extremely hard of hearing. ASSESSMENT: 1. Orthostatic hypotension. Treated with WENCESLAO hose, abdominal binder, and fluids. 2. Altered mental status, slowly but gradually improving. 3. Hypertension. 4. Bipolar disease. 5. Extremely hard of hearing. 6. Status post bowel obstruction, status post lysis of adhesions by Dr. Daniel Tao. 7. Percutaneous PEG tube, tolerating some oral but not enough to sustain himself yet. 8. Generalized weakness. PLAN: 1. The patient was switched over to some bolus feedings after he is eating, especially if he does not eat greater than 50% of his meals. 2. Continue to monitor the patient's blood pressure closely. 3. Stress ulcer prophylaxis. 4. DVT prophylaxis. 5. Decubitus precautions. 6. Continue present medications. 7. Speech therapy. 8. Physical therapy and occupational therapy. Job ID: [id number]
[2019-10-10] MEDS: traZODone HCl 50 MG TAB PO SCH (21:20)
[2019-10-10] MEDS: Melatonin 3 MG TAB PO SCH (21:20)
[2019-10-10] MEDS: clonazePAM 0.5 MG TAB PO SCH (21:20)
[2019-10-11] MEDS: Enoxaparin Sodium 40 MG/0.4 ML SYRINGE SC SCH (08:30)
[2019-10-11] MEDS: ZONISAMIDE 100 MG PO SCH ×2 (08:30→20:32)
[2019-10-11] MEDS: risperiDONE 0.25 MG TAB PO SCH ×2 (08:30→20:32)
[2019-10-11] MEDS: Fluconazole 100 MG TAB PO SCH (08:30)
[2019-10-11] MEDS: Lisinopril 10 MG TAB PO SCH (08:31)
[2019-10-11] MEDS: clonazePAM 0.5 MG TAB PO SCH (20:31)
[2019-10-11] MEDS: Melatonin 3 MG TAB PO SCH (20:31)
[2019-10-11] MEDS: traZODone HCl 50 MG TAB PO SCH (20:32)
[2019-10-12] MEDS: ZONISAMIDE 100 MG PO SCH ×2 (09:46→21:08)
[2019-10-12] MEDS: Enoxaparin Sodium 40 MG/0.4 ML SYRINGE SC SCH (09:48)
[2019-10-12] MEDS: Fluconazole 100 MG TAB PO SCH (09:49)
[2019-10-12] MEDS: risperiDONE 0.25 MG TAB PO SCH ×2 (09:49→21:09)
[2019-10-12] MEDS: Pantoprazole 40 MG GRANULES PACKET PER TUBE SCH (09:50)
[2019-10-12] MEDS: Lisinopril 10 MG TAB PO SCH (09:50)
[2019-10-12] MEDS: Melatonin 3 MG TAB PO SCH (21:08)
[2019-10-12] MEDS: traZODone HCl 50 MG TAB PO SCH (21:08)
[2019-10-12] MEDS: clonazePAM 0.5 MG TAB PO SCH (21:09)
--- NOTE | 2019-10-12 22:19 | PRG ---
DATE OF SERVICE: 10/12/2019 SUBJECTIVE: The patient is awake, alert, talking with family, cooperating with therapy today and feels he is getting much stronger, in fact, talking about when he can be discharged home, although he is still very weak. OBJECTIVE: LUNGS: Clear. CARDIAC: Regular rhythm. ABDOMEN: Soft and nontender. PEG tube functioning well. EXTREMITIES: Showed no edema, clubbing, or cyanosis. NEUROLOGIC: Showed no focal findings, only diffuse weakness. ASSESSMENT: 1. Improving deconditioning, cooperating with therapy. 2. Improving nutrition with PEG tube. 3. Stable, status post laparoscopic lysis of intestinal adhesions. PLAN: 1. Continue PT/OT. 2. Continue PEG tube feeding. 3. . 4. Orthostatic hypotension, improving with WENCESLAO hose. 5. Altered mental status, improving greatly over the last several days. 6. . 7. Improving nutrition with PEG tube placement. 8. Improving condition with increased nutrition. Job ID: [id number]
[2019-10-13] MEDS: Enoxaparin Sodium 40 MG/0.4 ML SYRINGE SC SCH (09:06)
[2019-10-13] MEDS: Fluconazole 100 MG TAB PO SCH (09:09)
[2019-10-13] MEDS: Pantoprazole 40 MG GRANULES PACKET PER TUBE SCH (09:09)
[2019-10-13] MEDS: ZONISAMIDE 100 MG PO SCH ×2 (09:09→20:59)
[2019-10-13] MEDS: risperiDONE 0.25 MG TAB PO SCH ×2 (09:11→21:03)
[2019-10-13] MEDS: Lisinopril 10 MG TAB PO SCH (09:11)
[2019-10-13] MEDS: Lorazepam 0.5 MG TAB PER TUBE PRN ×2 (11:02→21:04)
[2019-10-13] MEDS: clonazePAM 0.5 MG TAB PO SCH (21:03)
[2019-10-13] MEDS: Acetaminophen 500 MG TAB PER TUBE PRN (21:03)
[2019-10-13] MEDS: traZODone HCl 50 MG TAB PO SCH (21:04)
[2019-10-13] MEDS: Melatonin 3 MG TAB PO SCH (21:04)
[2019-10-14] MEDS: Fluconazole 100 MG TAB PO SCH (09:52)
[2019-10-14] MEDS: Pantoprazole 40 MG GRANULES PACKET PER TUBE SCH (09:52)
[2019-10-14] MEDS: Enoxaparin Sodium 40 MG/0.4 ML SYRINGE SC SCH (09:52)
[2019-10-14] MEDS: risperiDONE 0.25 MG TAB PO SCH ×2 (09:53→21:09)
[2019-10-14] MEDS: ZONISAMIDE 100 MG PO SCH ×2 (09:53→21:08)
[2019-10-14] MEDS: Lisinopril 10 MG TAB PO SCH (09:58)
[2019-10-14] MEDS: Melatonin 3 MG TAB PO SCH (21:09)
[2019-10-14] MEDS: traZODone HCl 50 MG TAB PO SCH (21:10)
[2019-10-14] MEDS: clonazePAM 0.5 MG TAB PO SCH (21:10)
[2019-10-15 02:04] LABS: Bilirubin Negative (Negative); Blood, Urine Large (Negative); Clarity Cloudy (Clear); Glucose, Urine (Dipstick) Negative (Negative); Leukocyte Large (Negative); Nitrite Negative (Negative); Protein, Urine (Dipstick) 100 mg/dL (Neg-Trace)
[2019-10-15 02:15] LABS: Bacteria/HPF 3+ HPF (None Seen); RBC/HPF Greater than 50 HPF (0-3); WBC/HPF Greater Than 50 HPF (0-3)
--- NOTE | 2019-10-15 07:41 | PRG ---
DATE OF SERVICE: 10/11/2019 SUBJECTIVE: The patient lying in the bed with no complaints, has been much less agitated according to the sitters. OBJECTIVE: GENERAL: The patient is lying in the bed, in no distress, resting well. VITAL SIGNS: Temperature is 96.4, pulse 77, respirations 20, O2 sats 98% on room air, blood pressure is 94/56. LUNGS: Clear. CARDIAC: Shows regular rhythm. ABDOMEN: Soft and nontender. ASSESSMENT: Improving nutrition, persistent mild confusion, improving deconditioning with improving cooperation with therapy. PLAN: 1. Continue PT/OT. 2. Continue PEG tube feeding. 3. Continue to monitor. Mental status is improving greatly. Job ID: [id number]
--- NOTE | 2019-10-15 07:50 | PRG ---
DATE OF SERVICE: 10/13/2019 SUBJECTIVE: Patient much more awake and alert, cooperative and lucid. He is wanting to get out of bed, but understands that he needs to wait for therapy and he is doing that. OBJECTIVE: VITAL SIGNS: Shows temperature is 97.8, pulse 94, respirations 20, O2 sats 94% on room air, blood pressure is 179/76. LUNGS: Clear. CARDIAC: Showed regular rhythm. ABDOMEN: Soft. PEG tube functioning well. The patient is getting much stronger. ASSESSMENT: 1. Improving deconditioning greatly. 2. Improving confusion and delirium. 3. Improving nutrition. 4. Stable vital signs. PLAN: 1. Continue PT/OT. 2. Continue PEG tube feeling. 3. Continue to monitor mental status which is improving greatly. Job ID: [id number]
[2019-10-15] MEDS: risperiDONE 0.25 MG TAB PO SCH ×2 (09:46→21:22)
[2019-10-15] MEDS: Fluconazole 100 MG TAB PO SCH (09:46)
[2019-10-15] MEDS: Pantoprazole 40 MG GRANULES PACKET PER TUBE SCH (09:46)
[2019-10-15] MEDS: Enoxaparin Sodium 40 MG/0.4 ML SYRINGE SC SCH (09:46)
[2019-10-15] MEDS: Lisinopril 10 MG TAB PO SCH (09:46)
[2019-10-15] MEDS: ZONISAMIDE 100 MG PO SCH ×2 (09:47→21:22)
[2019-10-15] MEDS: traZODone HCl 50 MG TAB PO SCH (21:23)
[2019-10-15] MEDS: clonazePAM 0.5 MG TAB PO SCH (21:23)
[2019-10-15] MEDS: Melatonin 3 MG TAB PO SCH (21:23)
[2019-10-15] MEDS ORDERED: Phenazopyridine HCl 97.5 MG TABLET ONE (21:47)
[2019-10-15] MEDS ORDERED: Phenazopyridine HCl 97.5 MG TABLET PER TUBE SCH (22:15)
[2019-10-15] MEDS ORDERED: Cipro 250 MG TAB PER TUBE SCH (22:15)
--- NOTE | 2019-10-15 22:16 | PRG ---
DATE OF SERVICE: 10/15/2019 SUBJECTIVE: The patient is sleeping, but has been more alert. Apparently, he has been complaining of dysuria today. OBJECTIVE: Lungs: Clear. CARDIAC: Shows regular rhythm. VITAL SIGNS: Show temperature is 97, pulse 80, respirations 20, O2 sats 98% on room air, blood pressure 138/62. LABORATORY DATA: Urinalysis shows greater than 50 white cells and red cells, ASSESSMENT: 1. New onset urinary tract infection. 2. Improving deconditioning. 3. Improving dementia. PLAN: 1. Cipro 250 twice daily for a week. 2. Urine culture. 3. Continue PT/OT. Job ID: [id number]
[2019-10-16] MEDS: Cipro 250 MG TAB PER TUBE SCH ×2 (05:38→20:05)
[2019-10-16] MEDS: risperiDONE 0.25 MG TAB PO SCH ×2 (09:11→20:32)
[2019-10-16] MEDS: Enoxaparin Sodium 40 MG/0.4 ML SYRINGE SC SCH (09:11)
[2019-10-16] MEDS: Phenazopyridine HCl 97.5 MG TABLET PER TUBE SCH (09:12)
[2019-10-16] MEDS: ZONISAMIDE 100 MG PO SCH ×2 (09:12→20:31)
[2019-10-16] MEDS: Pantoprazole 40 MG GRANULES PACKET PER TUBE SCH (09:12)
[2019-10-16] MEDS: Lisinopril 10 MG TAB PO SCH (09:14)
--- NOTE | 2019-10-16 13:53 | PRG ---
DATE OF SERVICE: 10/11/2019 SUBJECTIVE: The patient is lying in the bed, sleeping at this time but sitter states that he has been much better today. He has been up, eating much better and has been cooperating with therapy. OBJECTIVE: VITAL SIGNS: Temperature is 97.3, pulse 82, respirations 20, O2 sats 99% on room air, and blood pressure 95/54. LUNGS: Clear. CARDIAC: Showed regular rhythm. ABDOMEN: Soft and nontender. SKIN AND EXTREMITIES: Showed no edema, clubbing, or cyanosis. LABORATORY DATA: Urinalysis did show 7 to 10 white cells, rare to few bacteria. Culture was not ordered. ASSESSMENT: 1. Resolving deconditioning, status post placement of PEG tube after the patient developed metabolic encephalopathy after laparoscopic lysis of adhesions for intestinal obstruction. He has been slowly getting stronger, but today is his best study yet . 2. Hypertension, controlled to goal. 3. Bipolar disease, stable. PLAN: 1. Continue PT/OT. 2. Continue nutrition with PEG tube. 3. Continue . Job ID: [id number]
--- NOTE | 2019-10-16 19:23 | PRG ---
DATE OF SERVICE: 10/16/2019 SUBJECTIVE: Mr. Burroughs is a well-developed, well-nourished, slightly obese 84-year-old white male, who was taken to surgical suite by Dr. Danile Tao for laparoscopic adhesiolysis. Postoperatively, he did fairly well, but did not eat well. He had to have a PEG tube placed. He had altered mental status and metabolic encephalopathy. Eventually, he was transferred to [facility] for Physical Therapy and Occupational Therapy. Over the past 3 to 4 days, the patient has made remarkable improvement in his altered mental status and metabolic encephalopathy. He has also started eating better and drinking. He is much improved. He is talking much better, much more alert, and back to his normal status. He did have urinary tract infection and his culture reveals possible mixed culture, isolation progress. He was started on Cipro 250 mg b.i.d. for 7 days. PHYSICAL EXAMINATION: VITAL SIGNS: This morning reveal blood pressure 116/57, pulse 78, respirations 18, O2 saturation 98% on room air, T-max 96.6. GENERAL: This is a well-developed, well-nourished 84-year-old white male, in no apparent distress at this time. HEENT: Normocephalic, nontraumatic cranium. Pupils are equal, round, and reactive. Extraocular movements are intact. Nose and throat are moist today. NECK: Supple without masses, nodes, or bruits. CHEST: Clear to auscultation. No rales, rhonchi, or wheezes are heard. HEART: Regular rate and rhythm without murmurs, gallops, or rubs. ABDOMEN: Soft, nontender without organomegaly. Normal bowel sounds are noted. No rebound or guarding is noted. PEG tube continues to be working well and clean. : Deferred. EXTREMITIES: No clubbing, cyanosis, or edema. NEUROLOGIC: The patient has no significant focal deficits, but he is extremely hard of hearing. Mentally, he is much improved. ASSESSMENT: 1. Mild orthostatic hypotension occasionally treated with WENCESLAO hose, abdominal binder, and fluids. 2. Altered mental status, that continues to improve. 3. Hypertension. 4. Bipolar disease. 5. Extremely hard hearing. 6. Status post bowel obstruction, status post lysis of adhesions by Dr. Daniel Tao. 7. Percutaneous PEG tube, tolerating some oral, but still not enough to sustain himself yet. 8. Generalized weakness. PLAN: 1. Continue to offer the patient more pureed foods and thickened liquids. 2. Continue to monitor the patient's blood pressure closely. 3. Continue stress ulcer prophylaxis. 4. DVT prophylaxis. 5. Decubitus precautions. 6. Continue present medications. 7. Continue speech therapy. 8. Continue physical therapy and occupational therapy. Job ID: [id number] MTDD
[2019-10-16] MEDS: clonazePAM 0.5 MG TAB PO SCH (20:32)
[2019-10-16] MEDS: Melatonin 3 MG TAB PO SCH (20:32)
[2019-10-16] MEDS: traZODone HCl 50 MG TAB PO SCH (20:32)
[2019-10-16] MEDS: Acetaminophen 500 MG TAB PER TUBE PRN (20:32)
[2019-10-17] MEDS: Cipro 250 MG TAB PER TUBE SCH ×2 (04:24→20:41)
[2019-10-17] MEDS: Lorazepam 0.5 MG TAB PER TUBE PRN ×3 (04:24→20:40)
[2019-10-17] MEDS: Phenazopyridine HCl 97.5 MG TABLET PER TUBE SCH (09:55)
[2019-10-17] MEDS: risperiDONE 0.25 MG TAB PO SCH ×2 (09:55→20:39)
[2019-10-17] MEDS: Pantoprazole 40 MG GRANULES PACKET PER TUBE SCH (09:55)
[2019-10-17] MEDS: ZONISAMIDE 100 MG PO SCH ×2 (09:55→20:38)
[2019-10-17] MEDS: Lisinopril 10 MG TAB PO SCH (09:55)
[2019-10-17] MEDS: Enoxaparin Sodium 40 MG/0.4 ML SYRINGE SC SCH (10:06)
[2019-10-17] MEDS: traZODone HCl 50 MG TAB PO SCH (20:40)
[2019-10-17] MEDS: Melatonin 3 MG TAB PO SCH (20:40)
[2019-10-17] MEDS: clonazePAM 0.5 MG TAB PO SCH (20:40)
--- NOTE | 2019-10-17 23:03 | PRG ---
DATE OF SERVICE: 10/17/2019 SUBJECTIVE: Mr. Burroughs is an 84-year-old white male, who was taken to surgical suite by Dr. Tao for laparoscopic adhesiolysis. Postoperatively, he did well, but would not eat, and developed significant metabolic encephalopathy. He had to have a PEG tube placed. He had altered mental status and eventually was transferred to [facility] for physical therapy and occupational therapy. Over the past several days, the patient has made remarkable improvement. His mental capacity is much better. He has been able to walk and talk much more appropriately. He did have urinary tract infection, which revealed a possible mixed culture with isolations in progress. Basically, he will be on Cipro 250 twice a day and will continue for full 7 days. PHYSICAL EXAMINATION: GENERAL: This is a well-developed, well-nourished, very pleasant white male, in no apparent distress at this time. VITAL SIGNS: Today reveal blood pressure 114/66, pulse 74 to 84, respirations 18 to 20, O2 saturation 96% on room air, T-max 96.8. GENERAL: On physical exam, this is a well-developed, well-nourished, thin white male, in no apparent distress at this time. HEENT: Reveals normocephalic and nontraumatic cranium. Pupils are equal, round, and reactive. Extraocular movements are intact. Nose and throat are slightly dry. NECK: Supple without masses, nodes, or bruits. CHEST: Clear to auscultation. No rales, rhonchi, or wheezes are heard. HEART: Reveals a regular rate and rhythm without murmurs, gallops, or rubs. ABDOMEN: Soft, nontender without organomegaly. Normal bowel sounds are noted. No rebound or guarding is noted. PEG tube continues to work well. The patient is slowly beginning to eat better. : Deferred. EXTREMITIES: Reveal no clubbing, cyanosis, or edema. NEUROLOGIC: The patient has no dramatic focal deficits. ASSESSMENT: 1. Mild orthostatic hypotension, treated well with WENCESLAO hose, abdominal binder, and fluids. 2. Altered mental status, continues to slowly improve. 3. Hypertension. 4. Bipolar disease. 5. Extremely hard of hearing. 6. Status post bowel obstruction, status post lysis of adhesions by Dr. Aniket Tao. 7. Percutaneous PEG tube, still tolerating some oral, but still not enough to sustain himself. 8. Generalized weakness. PLAN: 1. Continue to offer the patient more pureed foods and thickened liquids. 2. Continue to monitor the patient's blood pressure closely. 3. Continue stress ulcer prophylaxis. 4. DVT prophylaxis. 5. Decubitus precautions. 6. Continue present medications. 7. Continue speech therapy. 8. Continue physical therapy. Job ID: [id number]
[2019-10-18] MEDS: Lorazepam 0.5 MG TAB PER TUBE PRN ×4 (03:34→20:53)
[2019-10-18] MEDS: Cipro 250 MG TAB PER TUBE SCH ×2 (04:59→20:54)
[2019-10-18] MEDS: Enoxaparin Sodium 40 MG/0.4 ML SYRINGE SC SCH (09:02)
[2019-10-18] MEDS: ZONISAMIDE 100 MG PO SCH ×2 (09:02→20:52)
[2019-10-18] MEDS: risperiDONE 0.25 MG TAB PO SCH ×2 (09:03→20:54)
[2019-10-18] MEDS: Pantoprazole 40 MG GRANULES PACKET PER TUBE SCH (09:03)
[2019-10-18] MEDS: Phenazopyridine HCl 97.5 MG TABLET PER TUBE SCH (09:03)
[2019-10-18] MEDS: Lisinopril 10 MG TAB PO SCH (09:04)
--- NOTE | 2019-10-18 17:03 | PRG ---
DATE OF SERVICE: 10/18/2019 SUBJECTIVE: Mr. Burroughs is an 84-year-old white male who was admitted to [facility] for small bowel obstruction and underwent lysis of adhesions laparoscopically. Postoperatively, he did not do well because he would not eat. He developed some significant metabolic encephalopathy and had to have a PEG tube placed. He had altered mental status. He eventually was stabilized and transferred to [facility] for physical therapy, occupational therapy, and speech therapy. Again, over the past several days, the patient has made significant improvements with mental capacity and his physical capacity, and he is beginning to eat. He did eat 100% of his lunch and supper yesterday. He did have urinary tract infection, started on Cipro for mixed culture twice a day for full 7 days. Microbiology as a final came out with greater than 100,000 mixed skin and enteric timothy present, containing three or more different organisms. PHYSICAL EXAMINATION: GENERAL: This is a well-developed, well-nourished, very pleasant 84-year-old white male, in no apparent distress at this time. HEENT: Reveals normocephalic and nontraumatic cranium. Pupils are equal, round, and reactive. Extraocular movements are intact. Nose and throat are still slightly dry. NECK: Supple without masses, nodes, or bruits. CHEST: Clear to auscultation. No rales, rhonchi, wheezes, or cough is heard. HEART: Reveals a regular rate and rhythm without murmurs, gallops, or rubs. ABDOMEN: Soft, nontender without organomegaly. Normal bowel sounds are noted in all 4 quadrants. No rebound or guarding is noted. PEG tube is not used yesterday. Order reads that if the patient needs greater than 50% of the meal, then we will hold his tube feedings. The patient continues to slowly eat better and did feed himself yesterday. GENITOURINARY: Deferred. EXTREMITIES: Reveal no clubbing, cyanosis, or edema. Just generalized weakness. NEUROLOGIC: The patient has no significant focal weaknesses. ASSESSMENT: 1. Mild orthostatic hypotension, which is much improved, being treated with WENCESLAO hose at times, abdominal binders, and fluids. 2. Altered mental status, continues to improve. The patient responds appropriately to questions at this time. 3. Hypertension, stable. 4. Bipolar disease. 5. Extremely hard of hearing, but if you get right in the patient's face and talk directly to him, he can understand you. 6. Status post bowel obstruction, status post lysis of adhesions by Dr. Daniel Tao. 7. Percutaneous PEG tube, still we will keep it there in case he stops eating. 8. Generalized weakness. PLAN: 1. Continue to offer pureed foods and thickened liquids at this time. 2. Speech therapy has been called in and is doing VitalStim, which he tolerated for 20 minutes this morning. 3. Continue to monitor the patient's blood pressure closely. 4. Continue stress ulcer prophylaxis. 5. DVT prophylaxis. 6. Decubitus precautions. 7. Continue present medications. 8. Speech therapy. 9. Physical therapy. Job ID: [id number]
[2019-10-18] MEDS: Melatonin 3 MG TAB PO SCH (20:53)
[2019-10-18] MEDS: traZODone HCl 50 MG TAB PO SCH (20:53)
[2019-10-18] MEDS: clonazePAM 0.5 MG TAB PO SCH (20:54)
[2019-10-19] MEDS: Lorazepam 0.5 MG TAB PER TUBE PRN ×3 (03:20→17:44)
[2019-10-19] MEDS: Cipro 250 MG TAB PER TUBE SCH ×2 (05:39→21:03)
[2019-10-19] MEDS: risperiDONE 0.25 MG TAB PO SCH ×2 (08:23→21:03)
[2019-10-19] MEDS: Enoxaparin Sodium 40 MG/0.4 ML SYRINGE SC SCH (08:23)
[2019-10-19] MEDS: Pantoprazole 40 MG GRANULES PACKET PER TUBE SCH (08:24)
[2019-10-19] MEDS: Lisinopril 10 MG TAB PO SCH (08:24)
[2019-10-19] MEDS: Phenazopyridine HCl 97.5 MG TABLET PER TUBE SCH (08:25)
[2019-10-19] MEDS: ZONISAMIDE 100 MG PO SCH ×2 (09:19→21:04)
--- NOTE | 2019-10-19 20:21 | PRG ---
DATE OF SERVICE: 10/19/2019 SUBJECTIVE: Mr. Burroughs is a very pleasant elderly 84-year-old white male, who initially was admitted to [facility] for small-bowel obstruction. He underwent robotic lysis of adhesions by Dr. Daniel Tao. Postoperatively, he did not eat very well and ended up having a PEG tube placed. He also had altered mental status with metabolic encephalopathy. Eventually, he was stabilized and transferred to [facility] for PT, OT, and speech therapy. Again, over the past week, the patient has made significant improvements with mental capacity and physical capacity. He is walking better certainly with assistance and with his rolling walker. He is eating better. He did have urinary tract infection, was started on Cipro for full 7 days. Unfortunately, his culture had mixed skin and enteric timothy present with more than 3 organisms. We will continue his Cipro for full 7 days since he is doing so well. OBJECTIVE: VITAL SIGNS: Today reveal blood pressure 135/63, pulse 78 to 94, respirations 18, T-max 97.5. GENERAL: This is an elderly 84-year-old white male, who was found sleeping in his bed, but was gently aroused. He recognizes me immediately and started up his conversation. His mental status is much improved over the last 5 days. HEENT: Reveals normocephalic and nontraumatic cranium. Pupils are equal, round, and reactive. Extraocular movements are intact. Nose and throat are still somewhat dry. NECK: Supple without masses, nodes, or bruits. CHEST: Clear to auscultation. No rales, rhonchi, or wheezes are noted. HEART: Reveals a regular rate and rhythm without murmurs, gallops, or rubs. ABDOMEN: Still soft and nontender without organomegaly. Normal bowel sounds noted in all 4 quadrants. No rebound or guarding is noted. PEG tube is still patent. The patient has an order to use the PEG tube for tube feedings if he eats less than 50% of the meal. : Continues to be deferred. EXTREMITIES: Reveal no clubbing, cyanosis, or edema. He is walking with standby assistance when he is with his rolling walker. NEUROLOGIC: He has no significant focal weaknesses. ASSESSMENT: 1. Orthostatic hypotension, much improved. 2. Altered mental status, much improved. 3. Hypertension, stable. 4. The patient continues to be extremely hard of hearing. 5. Status post bowel obstruction, status post lysis of adhesions by robotic means, done by Dr. Daniel Tao. 6. PEG tube on standby if needed. 7. Bipolar disease. 8. Generalized weakness. PLAN: 1. The patient has continued to have pureed foods and thickened liquids at this time. 2. Continue speech therapy using VitalStim. 3. Continue to monitor the patient's blood pressure closely. 4. Continue present medications. 5. DVT prophylaxis. 6. Decubitus precautions. 7. Physical therapy. 8. Speech therapy. Job ID: [id number]
[2019-10-19] MEDS: clonazePAM 0.5 MG TAB PO SCH (21:03)
[2019-10-19] MEDS: Melatonin 3 MG TAB PO SCH (21:03)
[2019-10-19] MEDS: traZODone HCl 50 MG TAB PO SCH (21:04)
[2019-10-20] MEDS: Enoxaparin Sodium 40 MG/0.4 ML SYRINGE SC SCH (09:10)
[2019-10-20] MEDS: Lisinopril 10 MG TAB PO SCH (09:11)
[2019-10-20] MEDS: Phenazopyridine HCl 97.5 MG TABLET PER TUBE SCH (09:11)
[2019-10-20] MEDS: Pantoprazole 40 MG GRANULES PACKET PER TUBE SCH (09:11)
[2019-10-20] MEDS: risperiDONE 0.25 MG TAB PO SCH ×2 (09:12→20:47)
[2019-10-20] MEDS: ZONISAMIDE 100 MG PO SCH ×2 (09:12→20:48)
[2019-10-20] MEDS ORDERED: Cipro 250 MG TAB PER TUBE SCH ×2 (10:15)
[2019-10-20] MEDS: Cipro 250 MG TAB PER TUBE SCH ×2 (10:16→20:48)
--- NOTE | 2019-10-20 15:37 | PRG ---
DATE OF SERVICE: 10/20/2019 SUBJECTIVE: Mr. Burroughs is a very pleasant 84-year-old white male, who was admitted to [facility] with small-bowel obstruction. He underwent robotic lysis of adhesions by Dr. Daniel Tao. Postoperatively, he had a brianna course including not eating well. He did have to end up getting a PEG tube placed. He also had significant mental status changes with metabolic encephalopathy. He was stabilized at [facility] in [place], was transferred to [facility] for physical therapy, occupational therapy, speech therapy and hopefully clearing his mental encephalopathy. Over the past week, the patient has made significant strides and improving with his physical therapy and his mental status. He is very nice and he is walking with his rolling walker with standby assistance. Occasionally, he does get weak where he needs more assistance, but that is mostly in passing. When he got noticed today, the patient will be transferring to [facility] on Wednesday morning. I plan to discharge him around 11 or 12 this next week Wednesday. OBJECTIVE: VITAL SIGNS: Today reveal blood pressure 102/51, pulse 84, respirations 16, O2 saturation 96% on room air, and T-max 98.0. GENERAL: This is a well-developed, well-nourished, very pleasant 84-year-old white male, in no apparent distress at this time. HEENT: Reveals normocephalic and nontraumatic cranium. Pupils equal, round, and reactive. Extraocular movements intact. Nose and throat are slightly dry. NECK: Supple without masses, nodes, or bruits. CHEST: Clear to auscultation. No rales, rhonchi, wheezes, or cough is noted. HEART: Reveals a regular rate and rhythm without murmurs, gallops, or rubs. ABDOMEN: Soft and nontender without organomegaly. Normal bowel sounds are noted in all 4 quadrants. No rebound or guarding is noted. : Deferred. PEG tube is still patent, but not being used at this time. EXTREMITIES: Reveal no clubbing, cyanosis, or edema. The patient continues to walk with standby assistance. NEUROLOGIC: He has no significant focal weaknesses. Urinalysis did come back with a Staphylococcus species less than 5000. ASSESSMENT: 1. Orthostatic hypotension, much improved. 2. Altered mental status, much improved. 3. Lysis of adhesions, status postop stable and resolved. 4. Hypertension, stable. 5. Extremely hard of hearing continues. 6. PEG tube, which will remain in place for the next 4 to 6 weeks until the patient establishes that he can eat at the next facility and take his medications consistently. 7. Bipolar disease. 8. Generalized weakness. PLAN: 1. The patient will be scheduled for discharge Wednesday morning between 10 and 11 o'clock. 2. Continue to monitor the patient's blood pressure closely. 3. Continue present medications. 4. DVT prophylaxis. 5. Decubitus precautions. 6. Physical therapy and speech therapy. Job ID: [id number]
[2019-10-20] MEDS: Melatonin 3 MG TAB PO SCH (20:47)
[2019-10-20] MEDS: traZODone HCl 50 MG TAB PO SCH (20:47)
[2019-10-20] MEDS: clonazePAM 0.5 MG TAB PO SCH (20:47)
[2019-10-21] MEDS: Cipro 250 MG TAB PER TUBE SCH ×2 (06:18→21:05)
[2019-10-21] MEDS: Enoxaparin Sodium 40 MG/0.4 ML SYRINGE SC SCH (08:00)
[2019-10-21] MEDS: Lisinopril 10 MG TAB PO SCH (08:00)
[2019-10-21] MEDS: Phenazopyridine HCl 97.5 MG TABLET PER TUBE SCH (08:01)
[2019-10-21] MEDS: Pantoprazole 40 MG GRANULES PACKET PER TUBE SCH (08:01)
[2019-10-21] MEDS: risperiDONE 0.25 MG TAB PO SCH ×2 (08:01→21:05)
[2019-10-21] MEDS: ZONISAMIDE 100 MG PO SCH ×2 (08:02→21:06)
--- NOTE | 2019-10-21 15:21 | PRG ---
DATE OF SERVICE: 10/21/2019 SUBJECTIVE: Mr. Burroughs is doing the same. No family at bedside. Discussed with nursing. OBJECTIVE: VITAL SIGNS: He is afebrile, heart rate 82, respirations 18, oxygen saturation 96% on room air, and blood pressure 95/48. CARDIOVASCULAR SYSTEM: S1-S2 plus. RESPIRATORY SYSTEM: Normal vesicular breath sounds. ABDOMEN: Soft and nontender. Bowel sounds heard in all quadrants. PEG tube site is healthy. EXTREMITIES: Without cyanosis or clubbing. CENTRAL NERVOUS SYSTEM: Cognitive deficits. IMPRESSION: 1. Deconditioning. 2. Gastroesophageal reflux disease. 3. Dyslipidemia. 4. Persistent cognitive deficits. 5. Osteoarthritis. 6. Anorexia, status post percutaneous endoscopic gastrostomy tube placement. PLAN: 1. Continue current medications. 2. Nutritional support with aspiration precautions. 3. PEG tube care. 4. Physical therapy. 5. Monitor cognition and neuro status. 6. Placement. Job ID: [id number]
[2019-10-21] MEDS: Melatonin 3 MG TAB PO SCH (21:05)
[2019-10-21] MEDS: clonazePAM 0.5 MG TAB PO SCH (21:05)
[2019-10-21] MEDS: traZODone HCl 50 MG TAB PO SCH (21:05)
[2019-10-21] MEDS: Milk Of Magnesia 30 ML UDCUP PER TUBE PRN (22:50)
[2019-10-22] MEDS: Cipro 250 MG TAB PER TUBE SCH (05:55)
[2019-10-22] MEDS: Enoxaparin Sodium 40 MG/0.4 ML SYRINGE SC SCH (09:21)
[2019-10-22] MEDS: risperiDONE 0.25 MG TAB PO SCH ×2 (09:22→19:54)
[2019-10-22] MEDS: Phenazopyridine HCl 97.5 MG TABLET PER TUBE SCH (09:23)
[2019-10-22] MEDS: Pantoprazole 40 MG GRANULES PACKET PER TUBE SCH (09:23)
[2019-10-22] MEDS: ZONISAMIDE 100 MG PO SCH ×2 (09:24→19:55)
[2019-10-22] MEDS: Lisinopril 10 MG TAB PO SCH (09:25)
--- NOTE | 2019-10-22 15:53 | PRG ---
DATE OF SERVICE: 10/22/2019 SUBJECTIVE: Mr. Burroughs is doing the same. Pleasantly confused. Denies any concerns or questions. He is at the nurse's station due to trying to climb out of bed frequently. OBJECTIVE: VITAL SIGNS: He is afebrile, heart rate 83, respirations 18, oxygen saturation 96% on room air, blood pressure 143/66. CARDIOVASCULAR SYSTEM: S1 and S2 plus. RESPIRATORY SYSTEM: Normal vesicular breath sounds. ABDOMEN: Soft, nontender. Bowel sounds are heard in all quadrants. PEG tube site is healthy. EXTREMITIES: Without cyanosis or clubbing. IMPRESSION: 1. Persistent cognitive deficits. 2. Dysphagia and poor p.o. intake, requiring PEG tube placement. 3. Gastroesophageal reflux disease. 4. Dyslipidemia. 5. Osteoarthritis. PLAN: 1. Continue current medications. 2. Nutritional support with PEG tube feeding. 3. Monitor cognitive and neuro status. 4. Routine laboratory values. 5. Placement. 6. Dr. Jesus garcia [facility]. Job ID: [id number]
[2019-10-22 16:53] VITALS: BMI 22.7
[2019-10-22] MEDS: clonazePAM 0.5 MG TAB PO SCH (19:53)
[2019-10-22] MEDS: Lorazepam 0.5 MG TAB PER TUBE PRN (19:53)
[2019-10-22] MEDS: Melatonin 3 MG TAB PO SCH (19:54)
[2019-10-22] MEDS: traZODone HCl 50 MG TAB PO SCH (19:54)
[2019-10-23] MEDS: Pantoprazole 40 MG GRANULES PACKET PER TUBE SCH (08:54)
[2019-10-23] MEDS: Enoxaparin Sodium 40 MG/0.4 ML SYRINGE SC SCH (08:54)
[2019-10-23] MEDS: Phenazopyridine HCl 97.5 MG TABLET PER TUBE SCH (08:54)
[2019-10-23] MEDS: risperiDONE 0.25 MG TAB PO SCH (08:55)
[2019-10-23] MEDS: Lisinopril 10 MG TAB PO SCH (08:59)
[2019-10-23] MEDS: ZONISAMIDE 100 MG PO SCH (09:01)
[2019-10-23 09:57] VITALS: TEMP 97.5
[2019-10-23] MEDS: Lorazepam 0.5 MG TAB PER TUBE PRN (11:09)
[2019-10-23 14:13] VITALS: BP 133/60
--- NOTE | 2019-10-23 21:27 | DIS ---
DATE OF ADMISSION: 09/13/2019 DATE OF DISCHARGE: 10/23/2019 HISTORY OF PRESENT ILLNESS: Mr. Burroughs is an 84-year-old white male, who had a small bowel obstruction. He underwent robotic lysis of adhesions by Dr. Daniel Tao. Postoperatively, he had a brianna course including not eating well. Therefore, he had to have a PEG tube placed. He had significant mental status changes with metabolic encephalopathy. Eventually, he was somewhat stabilized and transferred from [facility] to [facility] for PT, OT, and Speech Therapy. The patient has significant delay in getting stronger and clearing his altered mental status. Eventually, he did and he became much nicer without hallucinations and without need for tricyclics. He was very weak and started walking following physical therapy and occupational therapy instructions. He did start eating and is now pretty much have been eating the majority of his food by mouth. Hopefully within 4 to 6 weeks if he continues to do well, we can stop his PEG tube and remove it. DISCHARGE MEDICATIONS: Include the following; 1. Tylenol 500 mg per tube q.6 hours p.r.n. headache or fever. 2. DuoNebs p.r.n. wheezing. 3. Klonopin 0.5 mg at bedtime. 4. Lisinopril 10 mg daily. 5. Ativan 1 mg q.6 p.r.n. agitation. 6. Milk of magnesia p.r.n. 7. Melatonin 9 mg at bedtime. 8. Zonisamide 100 mg b.i.d. 9. Protonix 40 mg daily. 10. Risperdal 1 mg b.i.d. 11. Zoloft 100 mg a day. 12. Trazodone 50 mg at bedtime. PHYSICAL EXAMINATION: VITAL SIGNS: Today reveal blood pressure 100/52, pulse 77 to 98, respirations 18, O2 saturation 96% on room air, T-max 97.5. GENERAL: This is a well-developed, well-nourished, very pleasant, thin, elderly 84-year-old white male, in no apparent distress at this time. HEENT: Reveals normocephalic and nontraumatic cranium. Pupils are equal, round, and reactive. Extraocular movements are intact. Nose and throat are slightly dry. NECK: Supple without masses, nodes, or bruits. CHEST: Clear to auscultation. No rales, rhonchi, wheezes, or cough is noted. HEART: Reveals a regular rate and rhythm without murmurs, gallops, or rubs. ABDOMEN: Soft, nontender, without organomegaly. PEG tube still in place and working well. No rebound or guarding is noted. : Deferred. EXTREMITIES: Reveal no clubbing, cyanosis, or edema. The patient continues to walk with standby assistance. NEUROLOGIC: He has no focal weaknesses, just generalized weakness. ASSESSMENT: 1. Orthostatic hypotension, improved/resolved. 2. Altered mental status, improved/resolved. 3. Lysis of adhesions, status postop stable and resolved. 4. Hypertension, stable. 5. Extremely hard of hearing. 6. PEG tube will remain in place for the next 4 to 6 weeks until the patient establishes that he can eat at the next facility and can take his medications consistently. 7. Bipolar. 8. Generalized weakness. PLAN: 1. The patient is discharged to nursing care facility at [facility] in [place], [place] this morning between 10 and 11. 2. Continue to monitor the patient's blood pressure closely. 3. Continue present medications. 4. Decubitus precautions. 5. Physical therapy and occupational therapy. Job ID: [id number]
== END 2019-10-23 11:45 | DRG 949 ==
LOC: NAV ACUTE 18:10
PROVIDERS: ADMIT Family Medicine; ATTEND Family Medicine
DX: Z48.815 Encounter for surgical aftercare following surgery on the digestive system (principal); G93.41 Metabolic encephalopathy; N39.0 Urinary tract infection, site not specified; F03.91 Unspecified dementia, unspecified severity, with behavioral disturbance; I10 Essential (primary) hypertension; E78.5 Hyperlipidemia, unspecified; M19.91 Primary osteoarthritis, unspecified site; K21.9 Gastro-esophageal reflux disease without esophagitis; M10.9 Gout, unspecified; Z93.3 Colostomy status; Z88.8 Allergy status to other drugs, medicaments and biological substances; R53.1 Weakness; F31.9 Bipolar disorder, unspecified; D75.1 Secondary polycythemia; R41.89 Other symptoms and signs involving cognitive functions and awareness; Z68.22 Body mass index [BMI] 22.0-22.9, adult; I95.1 Orthostatic hypotension; R13.10 Dysphagia, unspecified; R63.0 Anorexia
CPT/HCPCS: 36415; 71045; 80048; 80053; 81001; 81003; 81015; 83880; 84134; 85025; 87086; 94640; C9113; J1650; J7050; J7620

== ENCOUNTER 2019-09-28 20:31 | Emergency (ER) | payer MEDICARE ==
--- NOTE | 2019-09-28 22:24 | RAD ---
SUPINE ABDOMEN: 09/28/19 INDICATION: PEG tube pulled out by patient and replaced. Technologist states 60 mL of Gastro was injected. FINDINGS/IMPRESSION: The film is suboptimal. The chest and upper abdomen are included; however, there is over exposure and the lung phillips cannot be evaluated. The upper abdomen shows scattered gas in the small bowel and co dawood. Apparent PEG tube overlies the left abdomen. Position cannot be adequately ascertained on this s uboptimal study. There is some density in the left upper quadrant which may represent contrast within the stomach, although this cannot be confirmed. Suggest repeat exam with better positioning and expo sure with reinjection of gastrografin. POS: [facility]
--- NOTE | 2019-09-28 22:59 | RAD ---
SUPINE ABDOMEN: 09/28/19 INDICATION: Assess PEG tube placement. The PEG tube overlies the left upper abdomen. Contrast opacifies the stomach and small bowel loops. N o evidence of extravasation. IMPRESSION: Findings would indicate PEG tube is in adequate position. POS: [facility]
== END 2019-09-28 23:18 ==
LOC: NAV ERS 20:31
DX: Z43.1 Encounter for attention to gastrostomy (principal); F43.10 Post-traumatic stress disorder, unspecified; M10.9 Gout, unspecified; K21.9 Gastro-esophageal reflux disease without esophagitis; I10 Essential (primary) hypertension; E78.5 Hyperlipidemia, unspecified; F32.9 Major depressive disorder, single episode, unspecified; Z79.899 Other long term (current) drug therapy
CPT/HCPCS: 43762; 74018